=== PATIENT | female | born 2000 | race Hispanic/Latino ===

== ENCOUNTER 2020-12-24 21:41 | Emergency (ER) | payer OTHER ==
--- OUTSIDE RECORDS SUMMARY | 2020-12-24 21:46 | XMS REPORT | Continuity of Care Document ---
:2000 Author Organization [facility] t Address [address] [place] [address] [address] [place] [address] Care Team Providers Name Role Phone Tony ORTIZ R Primary Care Physician Herb Terrazas Attending Clinician Doctor Unassigned, Name Attending Clinician Unavailable Payers Payer Name Policy Type Policy Number Effective Expiration Source Date Date [facility]ICA[facility] [place] [facility] PENDINGPENDING19 [facility] [id number] [place] [id number] [id number] 2013 [facility] 00:00:00 [facility] CHOICECOMMUNITY [place] HEALTH CHOICE [id number]/07/30 13-Present[address], [place] [address]OUZY Advance Directives Directive Decision Effective Termination Comments Source Date Date Healthcare Agents on N/A [facility] FileNameRelationshipHealthcare [facility] Agent Medical RelationshipCommunicationOlok Branch ZamudioMotherHealth Care [phone] (Mobile) Dank BarriosteresooFChildren's Healthcare of [facility] [phone] (Home) Problems Condition Condition Condition Status Onset Resolution Last Treating Co mments Source Name Details Category Date Date Treatment Clinician Date Passive Passive Disease Resolve 2015-072020-11-13 2020-11-13 Univers smoke smoke d 1-17 00:00:00 18:54:48 ity of exposure exposure 00:00: [place] 00 Medical Branch Folliculit Folliculit Disease Resolve 2015-072020-11-13 2020-11-13 Univers is is d 07-27 00:00:00 18:54:48 ity of 00:00: [place] 00 Medical Branch Dermatitis Dermatitis Disease Resolve 2015-072020-11-13 2020-11-13 Univers d 07-27 00:00:00 18:54:48 ity of 00:00: [place] 00 Medical Branch Overweight Overweight Disease Resolve 2014-072020-11-13 2020-11-13 Univers , , d 0- 00:00:00 18:54:48 [place] BMI 00 Medical 85.0-94.9 85.0-94.9 Bran ch percentile percentile for age for age Rash Rash Disease Resolve 2015-072016-05-27 2016-05-27 Univers d 07-27 00:00:00 15:53:45 ity of 00:00: [place] 00 Medical Branch Poor Poor Disease Resolve 2016-05-27 2016-05-27 Univers nutrition nutrition d 03-20 00:00:00 14:18:21 ity of 00:00: [place] 00 Medical Branch Iron Iron Disease Resolve 2015-05-07 2015-05-07 Univers deficiency deficiency d 03-20 00:00:00 21:23:28 [place]y of anemia due [place] to dietary to dietary 00 Me dical causes causes Branch Obesity Obesity Disease Resolve 2012-072015-05-07 2015-05-07 Univers d 0-18 00:00:00 21:23:24 ity of 00:00: [place] 00 [facility] Branch Allergies, Adverse Reactions, Alerts This patient has no known allergies or adverse reactions. Social History Social Habit Start Date Stop Date Quantity Comments Source ASSERTION 2020-10-17 University of 00:00:00 [facility] Exposure to Not sure University of SARS-CoV-2 [facility] (event) Branch Tobacco use and 2020-11-13 2020-11-13 Never used Universit y of exposure 00:00:00 00:00:00 [facility] Alcohol intake 2020-11-13 2020-11-13 Current University of 00:00:00 00:00:00 non-drinker of [facility] alcohol Branch (finding) Tobacco Comment 2020-11-13 2020-11-13 last vaped last Univ ersity of 00:00:00 00:00:00 week [facility] Sex Assigned At 2000 2000 Universit y of 00:00:00 00:00:00 [facility] Smoking Status Start Date Stop Date Source Former smoker 2020-11-13 00:00:00 2020-11-13 00:00:00 Universi ty of [facility] Never smoker [facility] acute hospital Medications Ordered Filled Start Stop Current Ordering Indication Dosage Frequency Signature Comments Components Source Medication Medication Date Date Medication? Clinician (SIG) Name Name hydrocortis 2015-07 Yes Folliculiti Apply to Univers one 1 % 1-17 s area(s) ity of cream 00:00: daily. [place] 00 [facility] clindamycin 2015-07 Yes Folliculiti Apply to Univers (CLINDAGEL) 1-17 s area(s) 2 ity of 1 % gel 00:00: (two) [place] 00 times Medical daily. Branch hydrocortis 2015-07- No Folliculiti Apply to Univers one 1 % 1-17 05-06 s area(s) ity of cream 00:00: 00:00 daily. [place] 00 :00 [facility] clindamycin 2015-07- No Folliculiti Apply to Univers (CLINDAGEL) 1-17 05-06 s area(s) 2 it y of 1 % gel 00:00: 00:00 (two) [place] 00 :00 times Medical daily. Branch Immunizations Ordered Immunization Filled Immunization Date Status Commen ts Source Name Name Influenza Virus 2016-05-27 Completed Universit y of Vaccine Quad IM 3+ 00:00:00 [facility] Influenza Virus 2016-05-27 Completed Universit y of Vaccine Quad IM 3+ 00:00:00 [facility] Influenza Virus 2016-05-27 Completed Universit y of Vaccine Quad IM 3+ 00:00:00 [facility] Influenza Virus 2015-05-07 Completed Universit y of Vaccine [place] Nasal 00:00:00 [facility] Influenza Virus 2015-05-07 Completed Universit y of Vaccine [place] Nasal 00:00:00 [facility] Influenza Virus 2015-05-07 Completed Universit y of Vaccine [place] Nasal 00:00:00 [facility] Influenza Virus 2014-05-01 Completed Universit y of Vaccine [place] Nasal 00:00:00 [facility] Influenza Virus 2014-05-01 Completed Universit y of Vaccine [place] Nasal 00:00:00 [facility] Influenza Virus 2014-05-01 Completed Universit y of Vaccine [place] Nasal 00:00:00 [facility] Influenza Virus 2013-04-26 Completed Universit y of Vaccine Nasal 00:00:[address] [facility] [place] [place] Influenza Virus 2013-04-26 Completed Universit y of Vaccine Nasal 00:00:[address] [facility] [place] Influenza Virus 2013-04-26 Completed Universit y of Vaccine Nasal 00:00:[address] [facility] [place] Meningococcal 2012-02-14 Completed University of Vaccine 00:00:00 [facility] TDAP 2012-02-14 Completed University of 00:00:00 [facility] Meningococcal 2012-02-14 Completed University of Vaccine 00:00:00 [facility] TDAP 2012-02-14 Completed University of 00:00:00 [facility] Meningococcal 2012-02-14 Completed University of Vaccine 00:00:00 [facility] TDAP 2012-02-14 Completed University of 00:00:00 [facility] TDAP 2011-07-11 Completed University of 00:00:00 [facility] TDAP 2011-07-11 Completed University of 00:00:00 [facility] Influenza Virus 2011-05-11 Completed Universit y of Vaccine Nasal 00:00:[address] [facility] [place] [place] Influenza Virus 2011-05-11 Completed Universit y of Vaccine - Whole 00:00:00 [facility] HPV 2011-05-11 Completed University of 00:00:00 [facility] Influenza Virus 2011-05-11 Completed Universit y of Vaccine - Whole 00:00:00 [facility] Influenza Virus 2011-05-11 Completed Universit y of Vaccine Nasal 00:00:[address] [facility] [place] [place] HPV 2011-05-11 Completed University of 00:00:00 [facility] Influenza Virus 2011-05-11 Completed Universit y of Vaccine Nasal 00:00:[address] [facility] [place] [place] Influenza Virus 2011-05-11 Completed Universit y of Vaccine - Whole 00:00:00 [facility] HPV 2011-05-11 Completed University of 00:00:00 [facility] HPV 2011-01-12 Completed University of 00:00:00 [facility] HPV 2011-01-12 Completed University of 00:00:00 [facility] HPV 2011-01-12 Completed University of 00:00:00 [facility] HPV 2010-11-10 Completed University of 00:00:00 [facility] HPV 2010-11-10 Completed University of 00:00:00 [facility] HPV 2010-11-10 Completed University of 00:00:00 [facility] Influenza Virus 2009-07-02 Completed Universit y of Vaccine 00:00:00 [facility] Influenza Virus 2009-07-02 Completed Universit y of Vaccine 00:00:00 [facility] Influenza Virus 2009-07-02 Completed Universit y of Vaccine 00:00:00 [facility] Varicella 2006-12-20 Completed University of (varivax)(chicken 00:00:00 [facility] edical pox) Branch Varicella 2006-12-20 Completed University of (varivax)(chicken 00:00:00 [place] M edical pox) Branch Varicella 2006-12-20 Completed University of (varivax)(chicken 00:00:00 [facility] edical pox) Branch HEPATITIS A 2005-09-06 Completed University of 00:00:00 [facility] HEPATITIS A 2005-09-06 Completed University of 00:00:00 [facility] HEPATITIS A 2005-09-06 Completed University of 00:00:00 [facility] HEPATITIS A 2005-03-03 Completed University of 00:00:00 [facility] HEPATITIS A 2005-03-03 Completed University of 00:00:00 [facility] HEPATITIS A 2005-03-03 Completed University of 00:00:00 [facility] MMR 2005-01-21 Completed University of 00:00:00 [facility] Pneumococcal 7 2005-01-21 Completed University of Conjugate, PCV7 00:00:00 [place] ical (Prevnar7) [place] Polio (IPV/OPV) 2005-01-21 Completed Universit y of 00:00:00 [facility] PPD (TB) 2005-01-21 Completed University of 00:00:00 [facility] DTAP 2005-01-21 Completed University of 00:00:00 [facility] MMR 2005-01-21 Completed University of 00:00:00 [facility] Pneumococcal 7 2005-01-21 Completed University of Conjugate, PCV7 00:00:00 [place] ical (Prevnar7) [place] Polio (IPV/OPV) 2005-01-21 Completed Universit y of 00:00:00 [facility] PPD (TB) 2005-01-21 Completed University of 00:00:00 [facility] DTAP 2005-01-21 Completed University of 00:00:00 [facility] MMR 2005-01-21 Completed University of 00:00:00 [facility] Pneumococcal 7 2005-01-21 Completed University of Conjugate, PCV7 00:00:00 [place] [facility] ical (Prevnar7) Branch Polio (IPV/OPV) 2005-01-21 Completed Universit y of 00:00:00 [facility] PPD (TB) 2005-01-21 Completed University of 00:00:00 [facility] DTAP 2005-01-21 Completed University of 00:00:00 [facility] Pneumococcal 7 2002-07-09 Completed University of Conjugate, PCV7 00:00:00 [place] [facility] ical (Prevnar7) Branch Pneumococcal 7 2002-07-09 Completed University of Conjugate, PCV7 00:00:00 [facility] ical (Prevnar7) Branch Pneumococcal 7 2002-07-09 Completed University of Conjugate, PCV7 00:00:00 [facility] ical (Prevnar7) Branch Varicella 2002-03-20 Completed University of (varivax)(chicken 00:00:00 [facility] edical pox) Branch DTAP 2002-03-20 Completed University of 00:00:00 [facility] Varicella 2002-03-20 Completed University of (varivax)(chicken 00:00:00 [place] M edical pox) Branch DTAP 2002-03-20 Completed University of 00:00:00 [facility] Varicella 2002-03-20 Completed University of (varivax)(chicken 00:00:00 [facility] edical pox) Branch DTAP 2002-03-20 Completed University of 00:00:00 [facility] MMR 2001-12-19 Completed University of 00:00:00 [facility] Polio (IPV/OPV) 2001-12-19 Completed Universit y of 00:00:00 [facility] PPD (TB) 2001-12-19 Completed University of 00:00:00 [facility] HIB 4 Dose Schedule 2001-12-19 Completed Unive rsity of 00:00:00 [facility] MMR 2001-12-19 Completed University of 00:00:00 [facility] Polio (IPV/OPV) 2001-12-19 Completed Universit y of 00:00:00 [facility] PPD (TB) 2001-12-19 Completed University of 00:00:00 [facility] HIB 4 Dose Schedule 2001-12-19 Completed Unive rsity of 00:00:00 [facility] MMR 2001-12-19 Completed University of 00:00:00 [facility] Polio (IPV/OPV) 2001-12-19 Completed Universit y of 00:00:00 [facility] PPD (TB) 2001-12-19 Completed University of 00:00:00 [facility] HIB 4 Dose Schedule 2001-12-19 Completed Unive rsity of 00:00:00 [facility] Hep B, Adol or Pedi 2001-10-03 Completed Unive rsity of Dosage 00:00:00 [facility] Hep B, Adol or Pedi 2001-10-03 Completed Unive rsity of Dosage 00:00:00 [facility] Hep B, Adol or Pedi 2001-10-03 Completed Unive rsity of Dosage 00:00:00 [facility] Pneumococcal 7 2001-08-02 Completed University of Conjugate, PCV7 00:00:00 [place] [facility] ical (Prevnar7) Branch DTAP 2001-08-02 Completed University of 00:00:00 [facility] HIB 4 Dose Schedule 2001-08-02 Completed Unive rsity of 00:00:00 [facility] Pneumococcal 7 2001-08-02 Completed University of Conjugate, PCV7 00:00:00 [place] [facility] ical (Prevnar7) Branch DTAP 2001-08-02 Completed University of 00:00:00 [facility] HIB 4 Dose Schedule 2001-08-02 Completed Unive rsity of 00:00:00 [facility] Pneumococcal 7 2001-08-02 Completed University of Conjugate, PCV7 00:00:00 [place] [facility] ical (Prevnar7) Branch DTAP 2001-08-02 Completed University of 00:00:00 [facility] HIB 4 Dose Schedule 2001-08-02 Completed Unive rsity of 00:00:00 [facility] Polio (IPV/OPV) 2001-05-10 Completed Universit y of 00:00:00 [facility] DTAP 2001-05-10 Completed University of 00:00:00 [facility] HIB 4 Dose Schedule 2001-05-10 Completed Unive rsity of 00:00:00 [facility] Hep B, Adol or Pedi 2001-05-10 Completed Unive rsity of Dosage 00:00:00 [facility] Polio (IPV/OPV) 2001-05-10 Completed Universit y of 00:00:00 [facility] DTAP 2001-05-10 Completed University of 00:00:00 [facility] HIB 4 Dose Schedule 2001-05-10 Completed Unive rsity of 00:00:00 [facility] Hep B, Adol or Pedi 2001-05-10 Completed Unive rsity of Dosage 00:00:00 [facility] Polio (IPV/OPV) 2001-05-10 Completed Universit y of 00:00:00 [facility] DTAP 2001-05-10 Completed University of 00:00:00 [facility] HIB 4 Dose Schedule 2001-05-10 Completed Unive rsity of 00:00:00 [facility] Hep B, Adol or Pedi 2001-05-10 Completed Unive rsity of Dosage 00:00:00 [facility] Pneumococcal 7 2001-02-14 Completed University of Conjugate, PCV7 00:00:00 [place] [facility] ical (Prevnar7) Branch Polio (IPV/OPV) 2001-02-14 Completed Universit y of 00:00:00 [facility] DTAP 2001-02-14 Completed University of 00:00:00 [facility] HIB 4 Dose Schedule 2001-02-14 Completed Unive rsity of 00:00:00 [facility] Pneumococcal 7 2001-02-14 Completed University of Conjugate, PCV7 00:00:00 [place] [facility] ical (Prevnar7) Branch Polio (IPV/OPV) 2001-02-14 Completed Universit y of 00:00:00 [facility] DTAP 2001-02-14 Completed University of 00:00:00 [facility] HIB 4 Dose Schedule 2001-02-14 Completed Unive rsity of 00:00:00 [facility] Pneumococcal 7 2001-02-14 Completed University of Conjugate, PCV7 00:00:00 [place] [facility] ical (Prevnar7) Branch Polio (IPV/OPV) 2001-02-14 Completed Universit y of 00:00:00 [facility] DTAP 2001-02-14 Completed University of 00:00:00 [facility] HIB 4 Dose Schedule 2001-02-14 Completed Unive rsity of 00:00:00 [facility] Hep B, Adol or Pedi 2000 Completed Unive rsity of Dosage 00:00:00 [facility] Hep B, Adol or Pedi 2000 Completed Unive rsity of Dosage 00:00:00 [facility] Hep B, Adol or Pedi 2000 Completed Unive rsity of Dosage 00:00:00 [facility] Vital Signs Vital Name Observation Time Observation Value Comments Source Systolic blood 2020-11-13 19:18:00 116 mm[Hg] Univer sity of pressure [facility] Diastolic blood 2020-11-13 19:18:00 71 mm[Hg] Unive rsity of [facility] Heart rate 2020-11-13 19:18:00 97 /min [facility] Body temperature 2020-11-13 19:18:00 37.22 [facility] Respiratory rate 2020-11-13 19:18:00 16 /min [facility] Body height 2020-11-13 19:18:00 157.5 cm [facility] Body weight 2020-11-13 19:18:00 69.174 kg [facility] BMI 2020-11-13 19:18:00 27.89 kg/m2 [facility] Procedures Procedure Date / Time Performed Performing Clinician Sour e POCT URINALYSIS W/O 2020-11-13 19:09:[address] [facility] SPECIFIC GRAVITY [facility] POCT TEST 2020-11-13 19:08:00 Milagro Varela [facility] CONSENT/REFUSAL FOR 2020-11-13 18:36:33 Doctor Unassigned, No Un [facility] DIAGNOSIS AND Name [facility] TREATMENT Plan of Care Planned Activity Planned Date Details Comments Source Future Scheduled 2022-02-13 DTaP,Tdap,and Td Univers ity of Test 00:00:00 Vaccines (5 - Td) [facility] [place] [facility] [code = Branch DTaP,Tdap,and Td Vaccines (5 - Td)] Future Scheduled 2022-02-13 DTaP,Tdap,and Td Univers ity of Test 00:00:00 Vaccines (5 - Td) [facility] carl [code = Branch DTaP,Tdap,and Td Vaccines (5 - Td)] Future Scheduled 2022-02-13 DTaP,Tdap,and Td Univers ity of Test 00:00:00 Vaccines (7 - Td) [facility] [place] [facility] [code = Branch DTaP,Tdap,and Td Vaccines (7 - Td)] Future Scheduled 2021-11-13 Screening for University of Test 00:00:00 Chlamydia [place] [facility] trachomatis Branch (procedure) [code = 422745859] Future Scheduled 2021-11-13 Depression screening Uni versity of Test 00:00:00 (procedure) [code = [facility] dical 365345103] Branch Future Scheduled 2021-11-13 MENINGOCOCCAL B Postponed from Univer sity of Test 00:00:00 VACCINES (1 of 2 - 2010 [place] [facility] ical Risk Bexsero 2-dose ( or Branch series) [code = ) MENINGOCOCCAL B VACCINES (1 of 2 - Risk Bexsero 2-dose series)] Future Scheduled 2021-11-13 Screening for University of Test 00:00:00 Chlamydia [place] [facility] trachomatis Branch (procedure) [code = 117119464] Future Scheduled 2021-11-13 Depression screening Uni versity of Test 00:00:00 (procedure) [code = [facility] dical [id number]] Branch Future Scheduled 2021-11-13 MENINGOCOCCAL B Postponed from Univer sity of Test 00:00:00 VACCINES (1 of 2 - 2010 [place] [facility] ical Risk Bexsero 2-dose ( or Branch series) [code = ) MENINGOCOCCAL B VACCINES (1 of 2 - Risk Bexsero 2-dose series)] Future Scheduled 2021-03-11 INFLUENZA VACCINE Univer sity of Test 00:00:00 (Season Ended) [code [place] [facility] edical = INFLUENZA VACCINE Branch (Season Ended)] Future Scheduled 2021-03-11 INFLUENZA VACCINE Univer sity of Test 00:00:00 (Season Ended) [code [place] [facility] ed[facility] = INFLUENZA VACCINE Branch (Season Ended)] Future Scheduled 2021-03-11 INFLUENZA VACCINE Univer sity of Test 00:00:00 (Season Ended) [code [place] [facility] ed[facility] = INFLUENZA VACCINE Branch (Season Ended)] Diagnostic Test 2020-11-13 GLUCOSE 1 HOUR POST Expected: Unive rsity of Pending 00:00:00 PRANDIAL [code = 11/13/2020, [place] [facility] [place] 59883-0] Expires: Branch 11/13/2021 Future Scheduled 2018 Hepatitis C University of Test 00:00:00 screening [place] [facility] (procedure) [code = Branch 270514121] Future Scheduled 2018 Hepatitis C University of Test 00:00:00 screening [place] [facility] (procedure) [code = Branch 350677480] Future Scheduled 2018 Hepatitis C University of Test 00:00:00 screening [place] [facility] (procedure) [code = Branch 794393376] Future Scheduled 2017-05-27 Well child visit Univers ity of Test 00:00:00 (procedure) [code = [facility] dical 389747492] Branch Future Scheduled 2016 SARS-CoV-2 University of Test 00:00:00 (COVID-19) Vaccine [place] [facility] ical (1) [code = Branch SARS-CoV-2 (COVID-19) Vaccine (1)] Future Scheduled 2016 SARS-CoV-2 University of Test 00:00:00 (COVID-19) Vaccine [place] [facility] (1) [code = Branch SARS-CoV-2 (COVID-19) Vaccine (1)] Future Scheduled 2016 Screening for University of Test 00:00:00 Chlamydia [place] [facility] trachomatis Branch (procedure) [code = 974413151] Future Scheduled 2016 SARS-CoV-2 University of Test 00:00:00 (COVID-19) Vaccine [place] [facility] (1) [code = Branch SARS-CoV-2 (COVID-19) Vaccine (1)] Future Scheduled 2012 Depression screening Uni versity of Test 00:00:00 (procedure) [code = [place] [facility] dical 044561876] Branch Future Scheduled 2010 MENINGOCOCCAL B Universi ty of Test 00:00:00 VACCINES (1 of 2 - [place] [facility] ical Risk Bexsero 2-dose Branch series) [code = MENINGOCOCCAL B VACCINES (1 of 2 - Risk Bexsero 2-dose series)] Future Scheduled WORKUP, Ordered: Univers ity of Test BLOOD BANK [code = 11/13/2020 [place] [facility] ical 3113] Branch Future Scheduled CBC WITH DIFF [code Univ ersity of Test = 82821-3] [facility] Future Scheduled GC & CHLAMYDIA Universit y of Test AMPLIFIED ASSAY [place] [facility] [code = 80280-4] Branch Future Scheduled HEPATITIS B SURFACE Univ ersity of Test ANTIGEN [code = [place] [facility] 61497-8] Branch Future Scheduled HIV 1/2 AG-AB WITH Unive rsity of Test REFLEX [code = [facility] 90742-2] Branch Future Scheduled RUBELLA SCREEN Universit y of Test (MARTIN) IGG [code = [place] Sd dical 02412-2] Branch Future Scheduled GALV ONLY - SYPHILIS Uni versity of Test IGG/IGM [code = [place] [facility] 77791-0] Branch Future Scheduled URINE CULTURE [code Univ ersity of Test = 630-4] [facility] Future Scheduled THYROID STIMULATING Univ ersity of Test HORMONE [code = [place] [facility] 72494-5] Branch Future Scheduled GLUCOSE 1 HOUR POST Univ ersity of Test PRANDIAL [code = [place] [facility] 27844-8] Branch Future Scheduled POCT URINALYSIS W/O 20 Occurrences Un iversity of Test SPECIFIC GRAVITY starting [place] [facility] [code = 76988] 11/13/2020 until Branch 11/13/2021 Encounters Start End Encounter Admission Attending Care Care Encounter Source Date/Time Date/Time Type Type Clinicians Facility Department ID 2020-12-24 2020-12-24 Telephone REINALDO Varela [id number] 00:00:00 00:00:00 Milagro Estevez [employer] [id number] [facility] [id number] MATERNAL [id number] & CHILD [address] [place] [address] Results Test Description Test Time Test Comments Results Result Comments Source POCT URINALYSIS W/O SPECIFIC GRAVITY 2020-11-13 19:09:00 Test Item Value Reference Range Interpretation Comme nts POCT PH U (test code = 3254) 7 mg/dl 5-8 POCT U LEUK EST (test code = 3263) Neg Negative - Negative POCT U NIT (test code = 3262) Neg Negative - Negative POCT U PROT (test code = 3259) Trace Negative - Negative POCT U GLU (test code = 3256) Neg Negative - Negative POCT U KETONE (test code = 3258) None Negative - Negative POCT U BLD (test code = 3257) Trace Negative - Negative [id number] 19:08:00 Test Item Value Reference Range Interpretation Comments POCT PREG (test code = 1605) Positive On board controls acceptable with C Yes Line (test code = 3574) POCT PREG LOT # (test code = 3575) POCT PREG TEST DATE (test code = 3576) [facility]
[2020-12-24 23:00] LABS: Urine Blood Negative (Negative); Urine Glucose Negative (Negative); Urine Protein Negative (Negative); Urine Specific Gravity 1.015 (1.005-1.030); Urine pH 7.5 (5.0-7.0)
[2020-12-24] MEDS ORDERED: ONDANSETRON 4 MG/2 ML VIAL ONE (23:02)
[2020-12-24] MEDS ORDERED: NA CHLORIDE 0.9% 1,000 ML ONE (23:02)
[2020-12-24 23:06] LABS: Urine Specific Gravity/Preg 1.015 (1.005-1.030)
[2020-12-24 23:13] LABS: Absolute Lymphocytes (CBC) 1.6 K/uL (0.7-4.9); Basophils % 0.5 % (0-1.3); Hematocrit 31.3 % (36.0-45.0); Lymphocytes % 23.7 % (15.3-44.8); MPV 7.9 fL (7.6-11.3); RBC Red Blood Cell Count 3.92 M/uL (3.86-4.86)
[2020-12-25 00:08] LABS: Urine Bacteria <20 /HPF (<20); Urine RBC <5 /HPF (NONE SEEN)
[2020-12-25 00:44] LABS: BUN Blood Urea Nitrogen 6 mg/dL (7-18); Bicarbonate 22 mmol/L (21-32); Glucose Level 82 mg/dL (74-106); HCG, Quantitative 48486 mIU/mL (1-3); Potassium 3.8 mmol/L (3.5-5.1); Sodium Level 139 mmol/L (136-145)
--- NOTE | 2020-12-25 00:56 | EDPHYS ---
Physician Documentation [facility] Name: Anil Barney Age: 20 yrs Sex: Female : 2000 Arrival Date: 12/24/2020 Time: 21:45 Bed 26 Private MD: ED Physician Giovanni Castillo HPI: 12/24 22:40 This 20 yrs old Female presents to ER via Ambulatory with complaints of cp Nausea/Vomiting, +12 Weeks Preg. 22:40 The patient presents to the emergency department with nausea, that is moderate, cp vomiting, that is intermittent. Onset: The symptoms/episode began/occurred 5 day(s) ago. Possible causes: . Associated signs and symptoms: Pertinent negatives: abdominal pain, constipation, diarrhea, fever, GI bleeding, vaginal bleeding. Severity of symptoms: in the emergency department the symptoms are unchanged despite home interventions. 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 Flu vaccine is not up to date. - Social history:: Smoking status: Patient denies any tobacco usage or history of. ROS: 22:45 Constitutional: Positive for poor PO intake, Negative for body aches, chills, fever. cp 22:45 Eyes: Negative for injury, pain, redness, and discharge. cp 22:45 Cardiovascular: Negative for chest pain, palpitations. 22:45 Respiratory: Negative for cough, shortness of breath, wheezing. 22:45 Abdomen/GI: Positive for nausea and vomiting, Negative for abdominal pain, constipation, hematemesis. 22:45 Neuro: Negative for altered mental status, weakness. 22:45 All other systems are negative. Exam: 22:50 Constitutional: The patient appears in no acute distress, alert, awake, comfortable, cp non-toxic, well developed, well nourished. 22:50 Head/Face: Normocephalic, atraumatic. cp 22:50 Eyes: Periorbital structures: appear normal, Conjunctiva: normal, no exudate, no injection, Sclera: no appreciated abnormality, Lids and lashes: appear normal, bilaterally. 22:50 ENT: External ear(s): are unremarkable, Nose: is normal, Mouth: Lips: moist, Oral mucosa: moist, Posterior pharynx: Airway: no evidence of obstruction, patent. 22:50 Chest/axilla: Inspection: normal, Palpation: is normal, no crepitus, no tenderness. 22:50 Cardiovascular: Rate: normal, Rhythm: regular. 22:50 Respiratory: the patient does not display signs of respiratory distress, Respirations: normal, no use of accessory muscles, no retractions, labored breathing, is not present, Breath sounds: are clear throughout, no decreased breath sounds. 22:50 Abdomen/GI: Inspection: abdomen appears normal, Bowel sounds: active, all quadrants, Palpation: abdomen is soft and non-tender, in all quadrants. 22:50 Back: CVA tenderness, is absent. 22:50 Skin: no rash present. cp 22:50 Neuro: Orientation: to person, place \T\ time. Mentation: is normal. cp Vital Signs: 21:53 BP 118 / 66; Pulse 92; Resp 16 S; Temp 98.8; Pulse Ox 100% on R/A; Weight 68.95 kg (R); ca1 Height 5 ft. 2 in. (157.48 cm) (R); Pain 0/10; 22:45 BP 94 / 64; Pulse 75; Resp 18; Pulse Ox 100% on R/A; kg 23:00 BP 97 / 58; Pulse 70; Resp 18; Pulse Ox 100% ; kg 23:30 BP 101 / 56; Pulse 72; Resp 20; Pulse Ox 100% on R/A; kg 17 00:00 BP 101 / 58; Pulse 75; Resp 20; Pulse Ox 98% on R/A; kg 01:00 BP 103 / 61; Pulse 79; Resp 16; Pulse Ox 99% on R/A; em 12/24 21:53 Body Mass Index 27.80 (68.95 kg, 157.48 cm) ca1 MDM: 12/24 22:05 Patient medically screened. cp 22:45 Differential diagnosis: gastritis, cholecystitis, dehydration, electrolyte abnormality. cp 12/25 00:55 Data reviewed: vital signs, nurses notes, lab test result(s), and as a result, I will cp discharge patient. 00:55 Counseling: I had a detailed discussion with the patient and/or guardian regarding: the cp historical points, exam findings, and any diagnostic results supporting the discharge/admit diagnosis, lab results, the need for outpatient follow up, an OB/Gyne specialist, to return to the emergency department if symptoms worsen or persist or if there are any questions or concerns that arise at home. Response to treatment: the patient's symptoms have markedly improved after treatment, VSS. Nausea markedly improved, vomiting resolved, and as a result, I will discharge patient. 12/24 22:30 Order name: Quantitative Hcg; Complete Time: 00:53 12/25 00:53 Interpretation: HCGQ 78421; Reviewed. 12/24 22:30 Order name: Abo/rh Typing; Complete Time: 00:41 cp 12/25 00:54 Interpretation: Reviewed. 12/24 22:30 Order name: Basic Metabolic Panel; Complete Time: 00:53 cp 12/25 00:53 Interpretation: Normal except: CL 111; BUN 6; CRE 0.38; CA 7.7. 12/24 22:30 Order name: CBC with Diff; Complete Time: 23:46 cp 12/24 23:46 Interpretation: Normal except: HGB 10.7; HCT 31.3; MCV 79.9. 12/24 22:36 Order name: Urine Microscopic Only; Complete Time: 00:41 cp 12/24 23:00 Order name: Urine Dipstick-Ancillary; Complete Time: 23:46 EDMS 12/25 00:41 Interpretation: Normal except: UPH 7.5. 12/24 22:30 Order name: Urine Test (obtain specimen); Complete Time: 23:02 cp 12/24 22:30 Order name: IV Saline Lock; Complete Time: 23:05 cp 12/24 22:30 Order name: Labs collected and sent; Complete Time: 23:05 cp 12/24 23:01 Order name: Urine --Ancillary (enter results); Complete Time: 23:46 eb 12/24 22:30 Order name: NPO; Complete Time: 22:38 cp 12/24 22:30 Order name: Urine Dipstick-Ancillary (obtain specimen); Complete Time: 23:02 cp 12/24 22:30 Order name: FHT's; Complete Time: 23:52 cp 12/24 23:12 Order name: Labs - recollect needed: recollect green top clotted; Complete Time: 23:39 eb 12/24 23:47 Order name: Labs - recollect needed: recollect the recollect also draw the abo no eb charge; Complete Time: 00:04 12/25 00:41 Order name: PO challenge; Complete Time: 00:57 cp Administered Medications: 12/24 22:45 Drug: NS 0.9% 1000 ml Route: IV; Rate: 1 bolus; Site: right antecubital; kg 12/25 00:55 Follow up: IV Status: Completed infusion; IV Intake: 1000ml em 12/24 23:01 Drug: Zofran (Ondansetron) 4 mg Route: IVP; Site: right antecubital; kg 12/25 00:55 Follow up: Response: No adverse reaction; Marked relief of symptoms; Nausea is decreasedem 00:57 Drug: Tylenol 1000 mg Route: PO; em 01:42 Follow up: Response: No adverse reaction; Marked relief of symptoms; Pain is decreased em 00:57 Drug: NS 0.9% 1000 ml Route: IV; Rate: 1 bolus; Site: right antecubital; em 01:42 Follow up: IV Status: Completed infusion; IV Intake: 1000ml em Disposition: 05:04 Co-signature as Attending Physician, Giovanni Castillo MD. rn Disposition: 12/25/20 00:55 Discharged to Home. Impression: related conditions, unspecified, first trimester, Nausea and vomiting. - Condition is Stable. - Discharge Instructions: Nausea and Vomiting, Adult, First Trimester of . - Prescriptions for Phenergan 25 mg Rectal Suppository - insert 1 suppository by RECTAL route every 6 hours As needed; 12 suppository. promethazine 25 mg Oral Tablet - take 1 tablet by ORAL route every 6 hours As needed; 20 tablet. - Work release form, Medication Reconciliation Form, Thank You Letter, Antibiotic Education, Prescription Opioid Use form. - Follow up: Private Physician; When: 1 - 2 days; Reason: Recheck today's complaints. - Problem is new. - Symptoms have improved. Signatures: Dispatcher [employer] Tripp Acevedo RN RN em Giovanni Castillo MD MD rn Page, Corey, PA PA cp Botello, Elizabeth eb Acob, Cheryl, RN RN [facility] Diana Duncan, JOSEPHINE RN kg Corrections: (The following items were deleted from the chart) 00:53 00:53 Normal except: CL 111; BUN 6; CRE 0.38. cp cp 01:44 00:55 12/25/2020 00:55 Discharged to Home. Impression: related conditions, em unspecified, first trimester; Nausea and vomiting. Condition is Stable. Forms are Medication Reconciliation Form, Thank You Letter, Antibiotic Education, Prescription Opioid Use. Follow up: Private Physician; When: 1 - 2 days; Reason: Recheck today's complaints. Problem is new. Symptoms have improved. cp
--- NOTE | 2020-12-25 00:56 | ER ---
Nurse's Notes [facility] Name: Anil Barney Age: 20 yrs Sex: Female : 2000 Arrival Date: 12/24/2020 Time: 21:45 Bed 26 Private MD: Diagnosis: related conditions, unspecified, first trimester;Nausea and vomiting Presentation: 12/24 21:51 Chief complaint: Patient states: 12 wks , N/V x 5 days. Can't keep anything ca1 down. Prescribed promethazine, no relief. Coronavirus screen: Client denies travel out of the [place] in the last 14 days. nausea, vomiting. Client presents with at least one sign or symptom that may indicate coronavirus-19. Standard/surgical mask placed on the client. Provider contacted for isolation considerations. Ebola Screen: Patient negative for fever greater than or equal to 101.5 degrees Fahrenheit, and additional compatible Ebola Virus Disease symptoms Patient denies exposure to infectious person. Patient denies travel to an Ebola-affected area in the 21 days before illness onset. No symptoms or risks identified at this time. Risk Assessment: Do you want to hurt yourself or someone else? Patient reports no desire to harm self or others. 21:51 Method Of Arrival: Ambulatory ca1 21:51 Acuity: HEMALATHA 3 ca1 21:53 Initial Sepsis Screen: Does the patient meet any 2 criteria? No. Patient's initial ca1 sepsis screen is negative. Does the patient have a suspected source of infection? No. Patient's initial sepsis screen is negative. Onset of symptoms was December 24, 2020. 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 Flu vaccine is not up to date. - Social history:: Smoking status: Patient denies any tobacco usage or history of. Screenin:07 Abuse screen: Denies threats or abuse. Denies injuries from another. Nutritional kg screening: No deficits noted. Tuberculosis screening: No symptoms or risk factors identified. Fall Risk None identified. No fall in past 12 months (0 pts). No secondary diagnosis (0 pts). IV access (20 points). Ambulatory Aid- None/Bed Rest/Nurse Assist (0 pts). Gait- Normal/Bed Rest/Wheelchair (0 pts) Mental Status- Oriented to own ability (0 pts). Total Carrasco Fall Scale indicates No Risk (0-24 pts). Assessment: 23:05 General: Appears in no apparent distress. Behavior is calm, cooperative, appropriate kg for age, quiet. Pain: Denies pain. Neuro: Level of Consciousness is awake, alert, obeys commands, Oriented to person, place, time, situation, Reports dizziness, Pt stated, "Sometimes I get dizzy when I get up and go walk and it comes and goes.". Cardiovascular: No deficits noted. Respiratory: No deficits noted. GI: Abdomen is round Reports constipation, nausea, vomiting. : No deficits noted. EENT: No deficits noted. Derm: No deficits noted. Musculoskeletal: No deficits noted. 23:56 Reassessment: Patient states feeling better. kg 12/25 01:15 Reassessment: tolerated PO well. em Vital Signs: 12/24 21:53 BP 118 / 66; Pulse 92; Resp 16 S; Temp 98.8; Pulse Ox 100% on R/A; Weight 68.95 kg (R); ca1 Height 5 ft. 2 in. (157.48 cm) (R); Pain 0/10; 22:45 BP 94 / 64; Pulse 75; Resp 18; Pulse Ox 100% on R/A; kg 23:00 BP 97 / 58; Pulse 70; Resp 18; Pulse Ox 100% ; kg 23:30 BP 101 / 56; Pulse 72; Resp 20; Pulse Ox 100% on R/A; kg 12/25 00:00 BP 101 / 58; Pulse 75; Resp 20; Pulse Ox 98% on R/A; kg 01:00 BP 103 / 61; Pulse 79; Resp 16; Pulse Ox 99% on R/A; em 12/24 21:53 Body Mass Index 27.80 (68.95 kg, 157.48 cm) ca1 Vitals: 12/24 23:52 Heart Tones 164 BPM. em ED Course: 21:45 Patient arrived in ED. bp1 21:53 Triage completed. ca1 21:53 Arm band placed on right wrist. ca1 21:57 Orville Bains PA is PHCP. cp 21:57 Giovanni Castillo MD is Attending Physician. cp 22:38 Diana Duncan, RN is Primary Nurse. kg 22:40 Inserted saline lock: 20 gauge in right antecubital area, using aseptic technique. kg 23:08 Patient has correct armband on for positive identification. Bed in low position. Call kg light in reach. Side rails up X 1. 12/25 00:05 Report given to Tripp BURTON. kg 01:40 No provider procedures requiring assistance completed. IV discontinued, intact, em bleeding controlled, No redness/swelling at site. Pressure dressing applied. Administered Medications: 12/24 22:45 Drug: NS 0.9% 1000 ml Route: IV; Rate: 1 bolus; Site: right antecubital; kg 12/25 00:55 Follow up: IV Status: Completed infusion; IV Intake: 1000ml em 12/24 23:01 Drug: Zofran (Ondansetron) 4 mg Route: IVP; Site: right antecubital; kg 12/25 00:55 Follow up: Response: No adverse reaction; Marked relief of symptoms; Nausea is decreasedem 00:57 Drug: Tylenol 1000 mg Route: PO; em 01:42 Follow up: Response: No adverse reaction; Marked relief of symptoms; Pain is decreased em 00:57 Drug: NS 0.9% 1000 ml Route: IV; Rate: 1 bolus; Site: right antecubital; em 01:42 Follow up: IV Status: Completed infusion; IV Intake: 1000ml em Intake: 00:55 IV: 1000ml; Total: 1000ml. em 01:42 IV: 1000ml; Total: 2000ml. em Outcome: 00:55 Discharge ordered by MD. cp 01:40 Discharged to home ambulatory, with family. em 01:40 Condition: stable 01:40 Discharge instructions given to patient, Instructed on discharge instructions, follow up and referral plans. medication usage, Demonstrated understanding of instructions, follow-up care, medications, Prescriptions given X 2. 01:44 Patient left the ED. em Signatures: Tripp Guerin, RN RN em Orville Bains PA PA cp Mahi Geronimo RN RN ca1 Litzy Mejia bp1 Diana Duncan RN RN kg
[2020-12-25] MEDS ORDERED: ACETAMINOPHEN 500 MG TAB ONE (01:09)
[2020-12-25] MEDS ORDERED: NA CHLORIDE 0.9% 1,000 ML ONE (01:10)
[2020-12-25 02:06] VITALS: TEMP 98.8
[2020-12-25 02:14] VITALS: BP 103/61; O2SAT 99
== END 2020-12-25 01:44 | disposition home or self-care (01) ==
LOC: ER 21:41
DX: O21.9 Vomiting of pregnancy, unspecified (principal); Z3A.12 12 weeks gestation of pregnancy
CPT/HCPCS: 85025; 80048; 36415; 86900; 81025; 86901; 84702; J7030 ×2; J2405; 81003; 81015; 96361; 96374; 99284

== ENCOUNTER 2021-01-16 15:29 | Emergency (ER) | payer OTHER ==
--- OUTSIDE RECORDS SUMMARY | 2021-01-16 15:32 | XMS REPORT | Continuity of Care Document ---
:2000 Author Organization [facility] t Address [address] [place] [address] Care Team Providers Name Role Phone Tony ORTIZ, R Primary Care Physician Tony ORTIZ, R Attending Clinician Avery ORTIZ, N Attending Clinician Lab Attending Clinician Unavailable Doctor Unassigned, Name Attending Clinician Unavailable Payers Payer Name Policy Type Policy Number Effective Expiration Source Date Date MEDICAID PENDING 2020 [facility] [place] [facility] PENDINGPENDING19 [facility] [id number] [place] [id number]. [facility]s [facility] [id number] 2013 [facility] 00:00:00 [place] [facility] CHOICECOX [facility] HEALTH CHOICE [id number] 13-[id number] [place] [id number] Advance Directives Directive Decision Effective Termination Comments Source Date Date Healthcare Agents on N/A [facility] FileNameRelationshipHealthcare [facility] Agent Medical RelationshipCommunicationSwitz City Branch ZamudioMotherHealth Care [phone] (Mobile) [facility] [phone] (Home) Problems Condition Condition Condition Status Onset Resolution Last Treating Co mments Source Name Details Category Date Date Treatment Clinician Date Folliculit Folliculit Disease Resolve 2015-072020-11-13 2020-11-13 Univers is is d -17 00:00:00 18:54:48 ity of 00:00: [place] 00 [facility] Dermatitis Dermatitis Disease Resolve 2015-072020-11-13 2020-11-13 Univers d 07-27 00:00:00 18:54:48 ity of 00:00: [place] [facility] Passive Passive Disease Resolve 2015-072020-11-13 2020-11-13 Univers smoke smoke d 07-27 00:00:00 18:54:48 ity of exposure exposure 00:00: [place] [facility] Overweight Overweight Disease Resolve 2014-072020-11-13 2020-11-13 Univers , , d 0- 00:00:00 18:54:48 [place] BMI 00 Medical 85.0-94.9 85.0-94.9 Bran ch percentile percentile for age for age Rash Rash Disease Resolve 2015-072016-05-27 2016-05-27 Univers d 07-27 00:00:00 15:53:45 ity of 00:00: [place] [facility] Poor Poor Disease Resolve 2016-05-27 2016-05-27 Univers nutrition nutrition d 03-20 00:00:00 14:18:21 ity of 00:00: [place] [facility] Iron Iron Disease Resolve 2015-05-07 2015-05-07 Univers deficiency deficiency d 03-20 00:00:00 21:23:28 [place]y of anemia due [place] to dietary to dietary 00 Me dical causes causes Branch Obesity Obesity Disease Resolve 2012-072015-05-07 2015-05-07 Univers d 0-18 00:00:00 21:23:24 ity of 00:00: [place] 00 Medical Branch Allergies, Adverse Reactions, Alerts This patient has no known allergies or adverse reactions. Social History Social Habit Start Date Stop Date Quantity Comments Source ASSERTION 2020-10-17 University of 00:00:00 [facility] Exposure to Not sure University of SARS-CoV-2 [facility] (event) Branch Tobacco use and 2020-11-13 2020-11-13 Never used Universit y of exposure 00:00:00 00:00:00 [facility] Alcohol intake 2020-11-13 2020-11-13 Current University of 00:00:00 00:00:00 non-drinker of [facility] alcohol Branch (finding) Tobacco Comment 2020-11-13 2020-11-13 last vaped last Univ ersity of 00:00:00 00:00:00 week [facility] Sex Assigned At 2000 2000 Universit y of 00:00:00 00:00:00 [facility] Smoking Status Start Date Stop Date Source Former smoker 2020-11-13 00:00:00 2020-11-13 00:00:00 Universi ty of [facility] Never smoker [facility] Branch Medications Ordered Filled Start Stop Current Ordering Indication Dosage Frequency Signature Comments Components Source Medication Medication Date Date Medication? Clinician (SIG) Name Name hydrocortis 2015-07 Yes Folliculiti Apply to Univers one 1 % 1-17 s area(s) ity of cream 00:00: daily. [address] clindamycin 2015-07 Yes Folliculiti Apply to Univers (CLINDAGEL) 1-17 s area(s) 2 ity of 1 % gel 00:00: (two) [place] 00 times Medical daily. Branch hydrocortis 2015-07- No Folliculiti Apply to Univers one 1 % 1-17 05-06 s area(s) ity of cream 00:00: 00:00 daily. [place] 00 :00 [facility] clindamycin 2015-07- No Folliculiti Apply to Univers (CLINDAGEL) 1-17 05-06 s area(s) 2 it y of 1 % gel 00:00: 00:00 (two) [place] 00 :00 times Medical daily. Branch Immunizations Ordered Immunization Filled Immunization Date Status Commen ts Source Name Name Influenza Virus 2016-05-27 Completed Universit y of Vaccine Quad IM 3+ 00:00:00 [facility] Influenza Virus 2016-05-27 Completed Universit y of Vaccine Quad IM 3+ 00:00:00 [facility] Influenza Virus 2016-05-27 Completed Universit y of Vaccine Quad IM 3+ 00:00:00 [facility] Influenza Virus 2015-05-07 Completed Universit y of Vaccine Quad Nasal 00:00:00 [facility] Influenza Virus 2015-05-07 Completed Universit y of Vaccine Quad Nasal 00:00:00 [facility] Influenza Virus 2015-05-07 Completed Universit y of Vaccine Quad Nasal 00:00:00 [facility] Influenza Virus 2014-05-01 Completed Universit y of Vaccine Quad Nasal 00:00:00 [facility] Influenza Virus 2014-05-01 Completed Universit y of Vaccine Quad Nasal 00:00:00 [facility] Influenza Virus 2014-05-01 Completed Universit y of Vaccine Quad Nasal 00:00:00 [facility] Influenza Virus 2013-04-26 Completed Universit y of Vaccine Nasal 00:00:00 [facility] Influenza Virus 2013-04-26 Completed Universit y of Vaccine Nasal 00:00:00 [facility] Influenza Virus 2013-04-26 Completed Universit y of Vaccine Nasal 00:00:00 [facility] Meningococcal 2012-02-14 Completed University of Vaccine 00:00:00 [facility] TDAP 2012-02-14 Completed University of 00:00:00 [facility] Meningococcal 2012-02-14 Completed University of Vaccine 00:00:00 [facility] TDAP 2012-02-14 Completed University of 00:00:00 [facility] Meningococcal 2012-02-14 Completed University of Vaccine 00:00:00 [facility] TDAP 2012-02-14 Completed University of 00:00:00 [facility] TDAP 2011-07-11 Completed University of 00:00:00 [facility] TDAP 2011-07-11 Completed University of 00:00:00 [facility] Influenza Virus 2011-05-11 Completed Universit y of Vaccine Nasal 00:00:00 [facility] Influenza Virus 2011-05-11 Completed Universit y of Vaccine - Whole 00:00:00 [facility] HPV 2011-05-11 Completed University of 00:00:00 [facility] Influenza Virus 2011-05-11 Completed Universit y of Vaccine - Whole 00:00:00 [facility] Influenza Virus 2011-05-11 Completed Universit y of Vaccine Nasal 00:00:00 [facility] HPV 2011-05-11 Completed University of 00:00:00 [facility] Influenza Virus 2011-05-11 Completed Universit y of Vaccine Nasal 00:00:00 [facility] Influenza Virus 2011-05-11 Completed Universit y of Vaccine - Whole 00:00:00 [facility] HPV 2011-05-11 Completed University of 00:00:00 [facility] HPV 2011-01-12 Completed University of 00:00:00 [facility] HPV 2011-01-12 Completed University of 00:00:00 [facility] HPV 2011-01-12 Completed University of 00:00:00 [facility] HPV 2010-11-10 Completed University of 00:00:00 [facility] HPV 2010-11-10 Completed University of 00:00:00 [facility] HPV 2010-11-10 Completed University of 00:00:00 [facility] Influenza Virus 2009-07-02 Completed Universit y of Vaccine 00:00:00 [facility] Influenza Virus 2009-07-02 Completed Universit y of Vaccine 00:00:00 [facility] Influenza Virus 2009-07-02 Completed Universit y of Vaccine 00:00:00 [facility] Varicella 2006-12-20 Completed University of (varivax)(chicken 00:00:00 [facility] edical pox) Branch Varicella 2006-12-20 Completed University of (varivax)(chicken 00:00:00 [facility] edical pox) Branch Varicella 2006-12-20 Completed University of (varivax)(chicken 00:00:00 [facility] edical pox) [place] HEPATITIS A 2005-09-06 Completed University of 00:00:00 [facility] HEPATITIS A 2005-09-06 Completed University of 00:00:00 [facility] HEPATITIS A 2005-09-06 Completed University of 00:00:00 [facility] HEPATITIS A 2005-03-03 Completed University of 00:00:00 [facility] HEPATITIS A 2005-03-03 Completed University of 00:00:00 [facility] HEPATITIS A 2005-03-03 Completed University of 00:00:00 [facility] MMR 2005-01-21 Completed University of 00:00:00 [facility] Pneumococcal 7 2005-01-21 Completed University of Conjugate, PCV7 00:00:00 [place] [facility] (Prevnar7) [place] Polio (IPV/OPV) 2005-01-21 Completed Universit y of 00:00:00 [facility] PPD (TB) 2005-01-21 Completed University of 00:00:00 [facility] DTAP 2005-01-21 Completed University of 00:00:00 [facility] MMR 2005-01-21 Completed University of 00:00:00 [facility] Pneumococcal 7 2005-01-21 Completed University of Conjugate, PCV7 00:00:00 [place] [facility] (Prevnar7) Branch Polio (IPV/OPV) 2005-01-21 Completed Universit y of 00:00:00 [facility] PPD (TB) 2005-01-21 Completed University of 00:00:00 [facility] DTAP 2005-01-21 Completed University of 00:00:00 [facility] MMR 2005-01-21 Completed University of 00:00:00 [facility] Pneumococcal 7 2005-01-21 Completed University of Conjugate, PCV7 00:00:00 [place] [facility] (Prevnar7) Branch Polio (IPV/OPV) 2005-01-21 Completed Universit y of 00:00:00 [facility] PPD (TB) 2005-01-21 Completed University of 00:00:00 [facility] DTAP 2005-01-21 Completed University of 00:00:00 [facility] Pneumococcal 7 2002-07-09 Completed University of Conjugate, PCV7 00:00:00 [place] [facility] (Prevnar7) Branch Pneumococcal 7 2002-07-09 Completed University of Conjugate, PCV7 00:00:00 [place] [facility] (Prevnar7) Branch Pneumococcal 7 2002-07-09 Completed University of Conjugate, PCV7 00:00:00 [facility] ical (Prevnar7) Branch Varicella 2002-03-20 Completed University of (varivax)(chicken 00:00:00 [place] [facility] pox) Branch DTAP 2002-03-20 Completed University of 00:00:00 [facility] Varicella 2002-03-20 Completed University of (varivax)(chicken 00:00:00 [place] [facility] pox) Branch DTAP 2002-03-20 Completed University of 00:00:00 [facility] Varicella 2002-03-20 Completed University of (varivax)(chicken 00:00:00 [place] [facility] pox) Branch DTAP 2002-03-20 Completed University of 00:00:00 [facility] MMR 2001-12-19 Completed University of 00:00:00 [facility] Polio (IPV/OPV) 2001-12-19 Completed Universit y of 00:00:00 [facility] PPD (TB) 2001-12-19 Completed University of 00:00:00 [facility] HIB 4 Dose Schedule 2001-12-19 Completed Unive rsity of 00:00:00 [facility] MMR 2001-12-19 Completed University of 00:00:00 [facility] Polio (IPV/OPV) 2001-12-19 Completed Universit y of 00:00:00 [facility] PPD (TB) 2001-12-19 Completed University of 00:00:00 [facility] HIB 4 Dose Schedule 2001-12-19 Completed Unive rsity of 00:00:00 [facility] MMR 2001-12-19 Completed University of 00:00:00 [facility] Polio (IPV/OPV) 2001-12-19 Completed Universit y of 00:00:00 [facility] PPD (TB) 2001-12-19 Completed University of 00:00:00 [facility] HIB 4 Dose Schedule 2001-12-19 Completed Unive rsity of 00:00:00 [facility] Hep B, Adol or Pedi 2001-10-03 Completed Unive rsity of Dosage 00:00:00 [facility] Hep B, Adol or Pedi 2001-10-03 Completed Unive rsity of Dosage 00:00:00 [facility] Hep B, Adol or Pedi 2001-10-03 Completed Unive rsity of Dosage 00:00:00 [facility] Pneumococcal 7 2001-08-02 Completed University of Conjugate, PCV7 00:00:00 [place] [facility] (Prevnar7) Branch DTAP 2001-08-02 Completed University of 00:00:00 [facility] HIB 4 Dose Schedule 2001-08-02 Completed Unive rsity of 00:00:00 [facility] Pneumococcal 7 2001-08-02 Completed University of Conjugate, PCV7 00:00:00 [place] [facility] (Prevnar7) Branch DTAP 2001-08-02 Completed University of 00:00:00 [facility] HIB 4 Dose Schedule 2001-08-02 Completed Unive rsity of 00:00:00 [facility] Pneumococcal 7 2001-08-02 Completed University of Conjugate, PCV7 00:00:00 [place] [facility] (Prevnar7) Branch DTAP 2001-08-02 Completed University of 00:00:00 [facility] HIB 4 Dose Schedule 2001-08-02 Completed Unive rsity of 00:00:00 [facility] Polio (IPV/OPV) 2001-05-10 Completed Universit y of 00:00:00 [facility] DTAP 2001-05-10 Completed University of 00:00:00 [facility] HIB 4 Dose Schedule 2001-05-10 Completed Unive rsity of 00:00:00 [facility] Hep B, Adol or Pedi 2001-05-10 Completed Unive rsity of Dosage 00:00:00 [facility] Polio (IPV/OPV) 2001-05-10 Completed Universit y of 00:00:00 [facility] DTAP 2001-05-10 Completed University of 00:00:00 [facility] HIB 4 Dose Schedule 2001-05-10 Completed Unive rsity of 00:00:00 [facility] Hep B, Adol or Pedi 2001-05-10 Completed Unive rsity of Dosage 00:00:00 [facility] Polio (IPV/OPV) 2001-05-10 Completed Universit y of 00:00:00 [facility] DTAP 2001-05-10 Completed University of 00:00:00 [facility] HIB 4 Dose Schedule 2001-05-10 Completed Unive rsity of 00:00:00 [facility] Hep B, Adol or Pedi 2001-05-10 Completed Unive rsity of Dosage 00:00:00 [facility] Pneumococcal 7 2001-02-14 Completed University of Conjugate, PCV7 00:00:00 [place] [facility] (Prevnar7) Branch Polio (IPV/OPV) 2001-02-14 Completed Universit y of 00:00:00 [facility] DTAP 2001-02-14 Completed University of 00:00:00 [facility] HIB 4 Dose Schedule 2001-02-14 Completed Unive rsity of 00:00:00 [facility] Pneumococcal 7 2001-02-14 Completed University of Conjugate, PCV7 00:00:00 [place] [facility] (Prevnar7) Branch Polio (IPV/OPV) 2001-02-14 Completed Universit y of 00:00:00 [facility] DTAP 2001-02-14 Completed University of 00:00:00 [facility] HIB 4 Dose Schedule 2001-02-14 Completed Unive rsity of 00:00:00 [facility] Pneumococcal 7 2001-02-14 Completed University of Conjugate, PCV7 00:00:00 [place] [facility] (Prevnar7) Branch Polio (IPV/OPV) 2001-02-14 Completed Universit y of 00:00:00 [facility] DTAP 2001-02-14 Completed University of 00:00:00 [facility] HIB 4 Dose Schedule 2001-02-14 Completed Unive rsity of 00:00:00 [facility] Hep B, Adol or Pedi 2000 Completed Unive rsity of Dosage 00:00:00 [facility] Hep B, Adol or Pedi 2000 Completed Unive rsity of Dosage 00:00:00 [facility] Hep B, Adol or Pedi 2000 Completed Unive rsity of Dosage 00:00:00 [facility] Vital Signs Vital Name Observation Time Observation Value Comments Source Systolic blood 2020-11-13 19:18:00 116 mm[Hg] Univer sity of pressure [facility] Diastolic blood 2020-11-13 19:18:00 71 mm[Hg] Unive rsity [facility] Heart rate 2020-11-13 19:18:00 97 /min [facility] Body temperature 2020-11-13 19:18:00 37.22 Christel [facility] Respiratory rate 2020-11-13 19:18:00 16 /min [facility] Body height 2020-11-13 19:18:00 157.5 cm [facility] Body weight 2020-11-13 19:18:00 69.174 kg [facility] BMI 2020-11-13 19:18:00 27.89 kg/m2 [facility] Procedures Procedure Date / Time Performed Performing Clinician Sourc e POCT URINALYSIS W/O 2020-11-13 19:09:00 Milagro Varela [facility] SPECIFIC GRAVITY [facility] POCT TEST 2020-11-13 19:08:00 Milagro Varela [facility] CONSENT/REFUSAL FOR 2020-11-13 18:36:33 Doctor Unassigned, No Un [facility] DIAGNOSIS AND Name [facility] TREATMENT Plan of Care Planned Activity Planned Date Details Comments Source Future Scheduled 2022-02-13 DTaP,Tdap,and Td Univers ity of Test 00:00:00 Vaccines (5 - Td) [facility] [code = Branch DTaP,Tdap,and Td Vaccines (5 - Td)] Future Scheduled 2022-02-13 DTaP,Tdap,and Td Univers ity of Test 00:00:00 Vaccines (5 - Td) [place] [facility] [code = Branch DTaP,Tdap,and Td Vaccines (5 - Td)] Future Scheduled 2022-02-13 DTaP,Tdap,and Td Univers ity of Test 00:00:00 Vaccines (7 - Td) [facility] carl [code = Branch DTaP,Tdap,and Td Vaccines (7 - Td)] Future Scheduled 2021-11-13 Screening for University of Test 00:00:00 Chlamydia [place] [facility] trachomatis Branch (procedure) [code = 941689115] Future Scheduled 2021-11-13 Depression screening Uni versity of Test 00:00:00 (procedure) [code = [facility] dical 256020510] Branch Future Scheduled 2021-11-13 MENINGOCOCCAL B Postponed from Univer sity of Test 00:00:00 VACCINES (1 of 2 - 2010 [place] [facility] ical Risk Bexsero 2-dose ( or Branch series) [code = ) MENINGOCOCCAL B VACCINES (1 of 2 - Risk Bexsero 2-dose series)] Future Scheduled 2021-11-13 Screening for University of Test 00:00:00 Chlamydia [place] [facility] trachomatis Branch (procedure) [code = 644058719] Future Scheduled 2021-11-13 Depression screening Uni versity of Test 00:00:00 (procedure) [code = [place] [facility] dical 695148988] Branch Future Scheduled 2021-11-13 MENINGOCOCCAL B Postponed [...] of Pending 00:00:00 PRANDIAL [code = 11/13/2020, [place] [facility] 41292-3] Expires: Branch 11/13/2021 Future Scheduled 2018 Hepatitis C University of Test 00:00:00 screening [place] [facility] (procedure) [code = Branch 216758076] Future Scheduled 2018 Hepatitis C University of Test 00:00:00 screening [place] [facility] (procedure) [code = Branch 492590297] Future Scheduled 2018 Hepatitis C University of Test 00:00:00 screening [place] [facility] (procedure) [code = Branch 849233541] Future Scheduled 2017-05-27 Well child visit Univers ity of Test 00:00:00 (procedure) [code = [facility] dical [id number]] Branch Future Scheduled 2016 SARS-CoV-2 University of Test 00:00:00 (COVID-19) Vaccine [place] [facility] (1) [code = Branch SARS-CoV-2 (COVID-19) Vaccine (1)] Future Scheduled 2016 SARS-CoV-2 University of Test 00:00:00 (COVID-19) Vaccine [place] [facility] (1) [code = Branch SARS-CoV-2 (COVID-19) Vaccine (1)] Future Scheduled 2016 Screening for University of Test 00:00:00 Chlamydia [place] [facility] trachomatis Branch (procedure) [code = 553363872] Future Scheduled 2016 SARS-CoV-2 University of Test 00:00:00 (COVID-19) Vaccine [place] [facility] (1) [code = Branch SARS-CoV-2 (COVID-19) Vaccine (1)] Future Scheduled 2012 Depression screening Uni versity of Test 00:00:00 (procedure) [code = [place] [facility] dical 284697079] Branch Future Scheduled 2010 MENINGOCOCCAL B Universi ty of Test 00:00:00 VACCINES (1 of 2 - [place] [facility] ical Risk Bexsero 2-dose Branch series) [code = MENINGOCOCCAL B VACCINES (1 of 2 - Risk Bexsero 2-dose series)] Future Scheduled CBC WITH DIFF [code Univ ersity of Test = 47526-4] [facility] Future Scheduled GC & CHLAMYDIA Universit y of Test AMPLIFIED ASSAY [place] [facility] [code = 88332-1] Branch Future Scheduled HEPATITIS B SURFACE Univ ersity of Test ANTIGEN [code = [place] [facility] 78603-3] Branch Future Scheduled HIV 1/2 AG-AB WITH Unive rsity of Test REFLEX [code = [facility] 61360-1] Branch Future Scheduled RUBELLA SCREEN Universit y of Test (MARTIN) IGG [code = [place] [facility] 11243-5] Branch Future Scheduled GALV ONLY - SYPHILIS Uni versity of Test IGG/IGM [code = [place] [facility] 34432-3] Branch Future Scheduled URINE CULTURE [code Univ ersity of Test = 630-4] [facility] Future Scheduled THYROID STIMULATING Univ ersity of Test HORMONE [code = [place] [facility] 04663-7] Branch Future Scheduled GLUCOSE 1 HOUR POST Univ ersity of Test PRANDIAL [code = [place] [facility] 68974-8] Branch Future Scheduled WORKUP, Ordered: Univers ity of Test BLOOD BANK [code = 11/13/2020 [place] [facility] 3113] Branch Future Scheduled POCT URINALYSIS W/O 20 Occurrences Un iversity of Test SPECIFIC GRAVITY starting [place] [facility] [code = 12333] 11/13/2020 until Branch 11/13/2021 Encounters Start End Encounter Admission Attending Care Care Encounter Source Date/Time Date/Time Type Type Clinicians Facility Department ID 2021-01-16 2021-01-16 Telephone Tony [facility] [id number] 00:00:00 00:00:00 Harjit Torres [facility] [id number] REGIONAL [id number] MATERNAL [id number] & CHILD 107 [facility] 2021-01-06 2021-01-06 Routine Avery, [facility] [id number] 12:52:07 13:11:46 Milagro Estevez 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[employer]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 [id number] Visit [facility] [id number] MATERNAL [id number] & CHILD 107 [facility] 2021-01-01 2021-01-01 Signals Intelligence Superintendent Lora, [facility] [id number] 13:58:50 14:39:43 Visit [facility] 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
[2021-01-16 19:11] LABS: Urine Blood Negative (Negative); Urine Glucose Negative (Negative); Urine Protein Negative (Negative); Urine Specific Gravity 1.025 (1.005-1.030); Urine pH 6.5 (5.0-7.0)
[2021-01-16 19:23] LABS: Absolute Lymphocytes (CBC) 1.4 K/uL (0.7-4.9); Basophils % 0.5 % (0-1.3); Hematocrit 32.5 % (36.0-45.0); Lymphocytes % 17.8 % (15.3-44.8); MPV 7.9 fL (7.6-11.3); RBC Red Blood Cell Count 4.02 M/uL (3.86-4.86)
[2021-01-16 19:29] LABS: Urine Specific Gravity/Preg 1.025 (1.005-1.030)
[2021-01-16 19:33] LABS: BUN Blood Urea Nitrogen 6 mg/dL (7-18); Bicarbonate 25 mmol/L (21-32); Glucose Level 79 mg/dL (74-106); Potassium 3.3 mmol/L (3.5-5.1); Sodium Level 138 mmol/L (136-145)
[2021-01-16] MEDS ORDERED: D5 0.9 NS 1,000 ML IV ONE (20:16)
[2021-01-16] MEDS ORDERED: ONDANSETRON 4 MG/2 ML VIAL ONE (20:16)
[2021-01-16] MEDS ORDERED: ACETAMINOPHEN 500 MG TAB ONE (20:26)
--- NOTE | 2021-01-16 22:02 | EDPHYS ---
Physician Documentation [facility] Name: Anil Barney Age: 20 yrs Sex: Female : 2000 Arrival Date: 01/16/2021 Time: 15:38 Bed 18 Private MD: ED Physician Surendra Sky HPI: 01/16 19:50 This 20 yrs old Female presents to ER via Ambulatory with complaints of mh7 dehydration- 15 wks preg. 19:50 The patient presents to the emergency department with nausea, that is moderate, mh7 vomiting, that is intermittent, described as clear fluid. Onset: The symptoms/episode began/occurred 1 week(s) ago, Intermittent for 3 months. Possible causes: . The symptoms are aggravated by nothing. The symptoms are alleviated by nothing. Associated signs and symptoms: Pertinent positives: constipation, nausea, vomiting, Pertinent negatives: abdominal pain, anorexia, belching, diarrhea, dysuria, fever, flatulence, GI bleeding, hematuria, vaginal discharge. Severity of symptoms: At their worst the symptoms were moderate 5 day(s) ago, in the emergency department the symptoms are unchanged. States that she is 15 weeks and has had normal US during this . 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 - Social history:: Smoking status: Patient denies any tobacco usage or history of. ROS: 19:50 Constitutional: Negative for fever, chills, and weight loss, Eyes: Negative for injury, mh7 pain, redness, and discharge, ENT: Negative for injury, pain, and discharge, Neck: Negative for injury, pain, and swelling, Cardiovascular: Negative for chest pain, palpitations, and edema, Respiratory: Negative for shortness of breath, cough, wheezing, and pleuritic chest pain. 19:50 Back: Negative for injury and pain, : Negative for injury, bleeding, discharge, and swelling, MS/Extremity: Negative for injury and deformity, Skin: Negative for injury, rash, and discoloration, Neuro: Negative for headache, weakness, numbness, tingling, and seizure, Psych: Negative for depression, anxiety, suicide ideation, homicidal ideation, and hallucinations, Allergy/Immunology: Negative for hives, rash, and allergies, Endocrine: Negative for neck swelling, polydipsia, polyuria, polyphagia, and marked weight changes, Hematologic/Lymphatic: Negative for swollen nodes, abnormal bleeding, and unusual bruising. 19:50 Abdomen/GI: Negative for abdominal pain, diarrhea, abdominal cramps, abdominal distension, anorexia, dysphagia, hematemesis, black/tarry stool, rectal pain, rectal bleeding, bowel incontinence, flatulence. Exam: 19:50 Constitutional: This is a well developed, well nourished patient who is awake, alert, mh7 and in no acute distress. Head/Face: Normocephalic, atraumatic. Eyes: Pupils equal round and reactive to light, extra-ocular motions intact. Lids and lashes normal. Conjunctiva and sclera are non-icteric and not injected. Cornea within normal limits. Periorbital areas with no swelling, redness, or edema. Neck: Trachea midline, no thyromegaly or masses palpated, and no cervical lymphadenopathy. Supple, full range of motion without nuchal rigidity, or vertebral point tenderness. No Meningismus. Chest/axilla: Normal chest wall appearance and motion. Nontender with no deformity. No lesions are appreciated. Cardiovascular: Regular rate and rhythm with a normal S1 and S2. No gallops, murmurs, or rubs. Normal PMI, no JVD. No pulse deficits. Respiratory: Lungs have equal breath sounds bilaterally, clear to auscultation and percussion. No rales, rhonchi or wheezes noted. No increased work of breathing, no retractions or nasal flaring. Abdomen/GI: Soft, non-tender, with normal bowel sounds. No distension or tympany. No guarding or rebound. No evidence of tenderness throughout. Back: No spinal tenderness. No costovertebral tenderness. Full range of motion. Skin: Warm, dry with normal turgor. Normal color with no rashes, no lesions, and no evidence of cellulitis. MS/ Extremity: Pulses equal, no cyanosis. Neurovascular intact. Full, normal range of motion. Neuro: Awake and alert, GCS 15, oriented to person, place, time, and situation. Cranial nerves II-XII grossly intact. Motor strength 5/5 in all extremities. Sensory grossly intact. Cerebellar exam normal. Normal gait. Psych: Awake, alert, with orientation to person, place and time. Behavior, mood, and affect are within normal limits. Vital Signs: 15:41 BP 102 / 61; Pulse 99; Resp 16; Temp 98.4; Pulse Ox 100% ; Weight 66.68 kg; Height 5 vg1 ft. 2 in. (157.48 cm); Pain 0/10; 17:30 BP 100 / 59; Pulse 87; Resp 16; Pulse Ox 100% ; bp 18:30 BP 94 / 54; Pulse 75; Resp 16; Pulse Ox 100% ; bp 22:03 BP 118 / 60; Pulse 70; Resp 16; Pulse Ox 99% ; ea 15:41 Body Mass Index 26.89 (66.68 kg, 157.48 cm) vg1 MDM: 21:59 Differential diagnosis: gastritis, viral gastroenteritis, gastroenteritis, Hyperemesis mh7 Gravidarum. Data reviewed: vital signs, nurses notes, lab test result(s), Beta HCG: CBC, electrolytes, urinalysis, UPT: positive. Counseling: I had a detailed discussion with the patient and/or guardian regarding: the historical points, exam findings, and any diagnostic results supporting the discharge/admit diagnosis, lab results, the need for outpatient follow up, an OB/Gyne specialist, to return to the emergency department if symptoms worsen or persist or if there are any questions or concerns that arise at home. Response to treatment: the patient's symptoms have resolved after treatment, the patient's blood pressure is in an acceptable range, mental status has returned to baseline, the patient no longer shows bradycardia, the patient is not short of breath, the patient is not tachycardic, the patient's pain is gone, the patient's temperature has normalized, the patient's condition has returned to base line, patient is well hydrated. 22:02 Patient medically screened. mh7 01/16 18:49 Order name: CBC with Diff; Complete Time: 21:09 kdr 01/16 18:49 Order name: Chem 7; Complete Time: 19:35 kdr 01/16 19:10 Order name: Urine Dipstick-Ancillary; Complete Time: 19:35 EDIN 01/16 19:13 Order name: Urine --Ancillary (enter results) tt3 01/16 19:14 Order name: Urine --Ancillary; Complete Time: 19:35 EDMS 01/16 19:37 Order name: HCG-Quantitative; Complete Time: 21:09 7 01/16 18:49 Order name: Urine Dipstick-Ancillary (obtain specimen); Complete Time: 19:00 kdr 01/16 19:37 Order name: Heart Tones; Complete Time: 21:17 [facility] Administered Medications: 19:00 Drug: NS 0.9% 1000 ml Route: IV; Rate: 1 bolus; Site: right forearm; bp 20:30 Follow up: Response: No adverse reaction; IV Status: Completed infusion; IV Intake: ea 1000ml 20:03 Drug: D5-NS 1000 ml Route: IV; Rate: per protocol; Site: right antecubital; em 21:50 Follow up: Response: No adverse reaction; IV Status: Completed infusion; IV Intake: ea 1000ml 20:03 Drug: Zofran (Ondansetron) 4 mg Route: IVP; Site: right antecubital; em 22:01 Follow up: Response: No adverse reaction ea 20:09 Drug: Tylenol 1000 mg Route: PO; ea 22:02 Follow up: Response: No adverse reaction ea Disposition Summary: 01/16/21 22:02 Discharge Ordered Location: Home [facility] Problem: an ongoing problem 7 Symptoms: have improved mh7 Condition: Stable 7 Diagnosis - Hyperemesis Gravidarum 7 Followup: 7 - With: Private Physician - When: 1 - 2 days - Reason: Worsening of condition, Recheck today's complaints, Continuance of care, Re-evaluation by your physician Discharge Instructions: - Discharge Summary Sheet ea - Hyperemesis Gravidarum [facility] Forms: - Medication Reconciliation Form mh7 - Work release form ea - Thank You Letter 7 - Antibiotic Education 7 - Prescription Opioid Use [facility] Prescriptions: - ondansetron 4 mg Oral tablet,disintegrating - place 1 tablet by TRANSLINGUAL route every 8 hours As needed; 10 tablet; mh7 Refills: 0, Product Selection Permitted - Colace 100 mg Oral Tablet - take 1 tablet by ORAL route every 12 hours; 14 tablet; Refills: 0, Product 7 Selection Permitted Signatures: Dispatcher [employer] Everett Carpio MD MD kdr Tripp Guerin, RN RN Concha Rockwell RN Jamarcus Flaherty ea, RN RN bp Garcia, Victoria, RN RN vg1 Surendra Sky MD MD mh7
--- NOTE | 2021-01-16 22:02 | ER ---
Nurse's Notes [facility] Name: Anil Barney Age: 20 yrs Sex: Female : 2000 Arrival Date: 01/16/2021 Time: 15:38 Bed 18 Private MD: Diagnosis: Hyperemesis Gravidarum Presentation: 01/16 15:41 Chief complaint: Patient states: Has been N/V, headache, and feeling tired for about a vg1 week. Stated was seen in ED for same thing about a month ago. Pt is currently 15 weeks . Coronavirus screen: Client denies travel out of the [place] in the last 14 days. Ebola Screen: Patient negative for fever greater than or equal to 101.5 degrees Fahrenheit, and additional compatible Ebola Virus Disease symptoms. Initial Sepsis Screen: Does the patient meet any 2 criteria? No. Patient's initial sepsis screen is negative. Does the patient have a suspected source of infection? No. Patient's initial sepsis screen is negative. Risk Assessment: Do you want to hurt yourself or someone else? Patient reports no desire to harm self or others. Onset of symptoms was January 09, 2021. 15:41 Method Of Arrival: Ambulatory vg1 15:41 Acuity: HEMALATHA 3 vg1 Triage Assessment: 15:43 General: Appears in no apparent distress. comfortable, Behavior is calm, cooperative. vg1 Pain: Denies pain. 15:45 General: Appears in no apparent distress. comfortable, Behavior is cooperative, bp appropriate for age, anxious. Pain: Denies pain. EENT: No deficits noted. Neuro: Level of Consciousness is awake, alert, obeys commands, Oriented to Appropriate for age. Cardiovascular: No deficits noted. Respiratory: No deficits noted. GI: No signs and/or symptoms were reported involving the gastrointestinal system. : No signs and/or symptoms were reported regarding the genitourinary system. Derm: No deficits noted. Musculoskeletal: No deficits noted. 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 - Social history:: Smoking status: Patient denies any tobacco usage or history of. Screenin:45 Abuse screen: Denies threats or abuse. Denies injuries from another. Nutritional bp screening: No deficits noted. Tuberculosis screening: No symptoms or risk factors identified. Fall Risk None identified. Assessment: 15:45 General: SEE TRIAGE NOTE. bp 17:30 Reassessment: No changes from previously documented assessment. Patient and/or family bp updated on plan of care and expected duration. Pain level reassessed. Patient is alert, oriented x 3, equal unlabored respirations, skin warm/dry/pink. 18:30 Reassessment: No changes from previously documented assessment. Patient and/or family bp updated on plan of care and expected duration. Pain level reassessed. Patient is alert, oriented x 3, equal unlabored respirations, skin warm/dry/pink. Patient denies pain at this time. 21:20 Reassessment: Patient and/or family updated on plan of care and expected duration. Pain ea level reassessed. Patient is alert, oriented x 3, equal unlabored respirations, skin warm/dry/pink. 21:20 Reassessment: Patient states feeling better. ea 22:09 Reassessment: Patient and/or family updated on plan of care and expected duration. Pain ea level reassessed. Patient is alert, oriented x 3, equal unlabored respirations, skin warm/dry/pink. Discharge instruction given to patient verbalized the understanding of instruction. Patient states feeling better. Vital Signs: 15:41 BP 102 / 61; Pulse 99; Resp 16; Temp 98.4; Pulse Ox 100% ; Weight 66.68 kg; Height 5 vg1 ft. 2 in. (157.48 cm); Pain 0/10; 17:30 BP 100 / 59; Pulse 87; Resp 16; Pulse Ox 100% ; bp 18:30 BP 94 / 54; Pulse 75; Resp 16; Pulse Ox 100% ; bp 22:03 BP 118 / 60; Pulse 70; Resp 16; Pulse Ox 99% ; ea 15:41 Body Mass Index 26.89 (66.68 kg, 157.48 cm) vg1 ED Course: 15:38 Patient arrived in ED. as 15:43 Triage completed. vg1 15:43 Arm band placed on Patient placed in waiting room, Patient notified of wait time. vg1 15:45 Patient has correct armband on for positive identification. Bed in low position. Call bp light in reach. Side rails up X2. Adult w/ patient. 16:41 Everett Alonzo MD is Attending Physician. kdr 18:40 Jamarcus Richards, RN is Primary Nurse. bp 19:00 Inserted saline lock: 20 gauge in right forearm, using aseptic technique. Blood bp collected. 19:04 Attending Physician role handed off by Everett Alonzo MD [facility] 19:04 Surendra Sky MD is Attending Physician. [facility] 21:08 heart tones at 164bpm with doppler. jb5 21:59 No provider procedures requiring assistance completed. IV discontinued, intact, ea bleeding controlled, No redness/swelling at site. Pressure dressing applied. Administered Medications: 19:00 Drug: NS 0.9% 1000 ml Route: IV; Rate: 1 bolus; Site: right forearm; bp 20:30 Follow up: Response: No adverse reaction; IV Status: Completed infusion; IV Intake: ea 1000ml 20:03 Drug: D5-NS 1000 ml Route: IV; Rate: per protocol; Site: right antecubital; em 21:50 Follow up: Response: No adverse reaction; IV Status: Completed infusion; IV Intake: ea 1000ml 20:03 Drug: Zofran (Ondansetron) 4 mg Route: IVP; Site: right antecubital; em 22:01 Follow up: Response: No adverse reaction ea 20:09 Drug: Tylenol 1000 mg Route: PO; ea 22:02 Follow up: Response: No adverse reaction ea Intake: 20:30 IV: 1000ml; Total: 1000ml. ea 21:50 IV: 1000ml; Total: 2000ml. ea Outcome: 22:02 Discharge ordered by . [facility] 22:09 Discharged to home ambulatory, with family. ea 22:09 Condition: stable 22:09 Discharge instructions given to patient, Instructed on discharge instructions, follow up and referral plans. medication usage, Demonstrated understanding of instructions, follow-up care, medications, Prescriptions given X 2. 22:10 Patient left the ED. ea Signatures: Everett Alonzo MD MD kdr Munoz, Edgar, RN RN em Martinez, Amelia as Broussard, Jennifer 5 Concha Iglesias RN RN ea Peltier, Brian RN RN bp Elisabeth Hernandez, RN RN vg1 Surendra Sky MD MD mh7
[2021-01-16 22:19] VITALS: TEMP 98.4
[2021-01-16 22:22] VITALS: BP 118/60; O2SAT 99
== END 2021-01-16 22:10 | disposition home or self-care (01) ==
LOC: ER 15:29
DX: O21.0 Mild hyperemesis gravidarum (principal); Z3A.15 15 weeks gestation of pregnancy
CPT/HCPCS: 96361; 85025; 80048; 36415; 81025; 84702; 81003; 96374; 99284; J7042; J2405

== ENCOUNTER 2021-02-05 23:52 | Emergency (ER) | payer OTHER ==
--- OUTSIDE RECORDS SUMMARY | 2021-02-05 23:55 | XMS REPORT | Continuity of Care Document ---
:2000 Author Organization [facility] t Address [address] [place] [address] Care Team Providers Name Role Phone Tony ORTIZ, R Primary Care Physician Avery ORTIZ, N Attending Clinician Tony ORTIZ, R Attending Clinician Lab Attending Clinician Unavailable Doctor Unassigned, Name Attending Clinician Unavailable Payers Payer Name Policy Type Policy Number Effective Expiration Source Date Date MEDICAID PENDING 2020 [facility] [place] [facility] PENDINGPENDING19 [facility] [id number] [place] [id number] [id number] 2013 [facility] 00:00:00 [place] [facility] CHOICE [id number] 13-[id number] [place] [id number] Advance Directives Directive Decision Effective Termination Comments Source Date Date Healthcare Agents on N/A [facility] FileNameRelationshipHealthcare [facility] Agent Medical RelationshipCommunicationApopka Branch ZamudioMotherHealth Care [phone] (Mobile) [facility] [phone] (Home) Problems Condition Condition Condition Status Onset Resolution Last Treating Co mments Source Name Details Category Date Date Treatment Clinician Date Folliculit Folliculit Disease Resolve 2015-072020-11-13 2020-11-13 Univers is is d -17 00:00:00 18:54:48 ity of 00:00: [place] 00 [facility] Dermatitis Dermatitis Disease Resolve 2015-072020-11-13 2020-11-13 Univers d 07-27 00:00:00 18:54:48 ity of 00:00: [place] [facility] Passive Passive Disease Resolve 2015-072020-11-13 [...] 00:00:00 15:53:45 ity of 00:00: [place] [facility] Poor Poor Disease Resolve 2016-05-27 2016-05-27 Univers nutrition nutrition d 03-20 00:00:00 14:18:21 ity of 00:00: [place] [facility] Iron Iron Disease Resolve 2015-05-07 [...] Comments Source ASSERTION 2020-10-17 University of 00:00:00 [facility] Exposure to Not sure University of SARS-CoV-2 [facility] (event) Branch Tobacco use and 2020-11-13 2020-11-13 Never used Universit y of exposure 00:00:00 00:00:00 [facility] Alcohol intake 2020-11-13 2020-11-13 Current University of 00:00:00 00:00:00 non-drinker of [facility] alcohol Branch (finding) Tobacco Comment 2020-11-13 2020-11-13 last vaped last Univ ersity of 00:00:00 00:00:00 week [facility] Sex Assigned At 2000 2000 Universit y of 00:00:00 00:00:00 [facility] Smoking Status Start Date Stop Date Source Former smoker 2020-11-13 00:00:00 2020-11-13 00:00:00 Universi ty of [facility] Never smoker [facility] Branch Medications Ordered Filled Start Stop Current Ordering Indication Dosage Frequency Signature Comments Components Source Medication Medication Date Date Medication? Clinician (SIG) Name Name hydrocortis 2015-07 Yes Folliculiti Apply to Univers one 1 % 1-17 s area(s) ity of cream 00:00: daily. [address] clindamycin 2015-07 Yes Folliculiti Apply to Univers (CLINDAGEL) 1-17 s area(s) 2 ity of 1 % gel 00:00: (two) [place] 00 times Medical daily. Branch hydrocortis 2015-07- No Folliculiti Apply to Univers one 1 % 1-17 05-06 s area(s) ity of cream 00:00: 00:00 daily. [place] 00 :00 [facility] clindamycin 2015-07- No Folliculiti Apply to Univers (CLINDAGEL) 1-17 05-06 s area(s) 2 it y of 1 % gel 00:00: 00:00 (two) [place] 00 :00 times Medical daily. Branch Immunizations Ordered Immunization Filled Immunization Date Status Commen ts Source Name Name Influenza Virus 2016-05-27 Completed Universit y of Vaccine Quad IM 3+ 00:00:00 [facility] Influenza Virus 2016-05-27 Completed Universit y of Vaccine Quad IM 3+ 00:00:00 [facility] Influenza Virus 2016-05-27 Completed Universit y of Vaccine Quad IM 3+ 00:00:00 [facility] Influenza Virus 2015-05-07 Completed Universit y of Vaccine Quad Nasal 00:00:00 [facility] Influenza Virus 2015-05-07 Completed Universit y of Vaccine Quad Nasal 00:00:00 [facility] Influenza Virus 2015-05-07 Completed Universit y of Vaccine Quad Nasal 00:00:00 [facility] Influenza Virus 2014-05-01 Completed Universit y of Vaccine Quad Nasal 00:00:00 [facility] Influenza Virus 2014-05-01 Completed Universit y of Vaccine Quad Nasal 00:00:00 [facility] Influenza Virus 2014-05-01 Completed Universit y of Vaccine Quad Nasal 00:00:00 [facility] Influenza Virus 2013-04-26 Completed Universit y of Vaccine Nasal 00:00:00 [facility] Influenza Virus 2013-04-26 Completed Universit y of Vaccine Nasal 00:00:00 [facility] Influenza Virus 2013-04-26 Completed Universit y of Vaccine Nasal 00:00:00 [facility] Meningococcal 2012-02-14 Completed University of Vaccine 00:00:00 [facility] TDAP 2012-02-14 Completed University of 00:00:00 [facility] Meningococcal 2012-02-14 Completed University of Vaccine 00:00:00 [facility] TDAP 2012-02-14 Completed University of 00:00:00 [facility] Meningococcal 2012-02-14 Completed University of Vaccine 00:00:00 [facility] TDAP 2012-02-14 Completed University of 00:00:00 [facility] TDAP 2011-07-11 Completed University of 00:00:00 [facility] TDAP 2011-07-11 Completed University of 00:00:00 [facility] Influenza Virus 2011-05-11 Completed Universit y of Vaccine Nasal 00:00:00 [facility] Influenza Virus 2011-05-11 Completed Universit y of Vaccine - Whole 00:00:00 [facility] HPV 2011-05-11 Completed University of 00:00:00 [facility] Influenza Virus 2011-05-11 Completed Universit y of Vaccine - Whole 00:00:00 [facility] Influenza Virus 2011-05-11 Completed Universit y of Vaccine Nasal 00:00:00 [facility] HPV 2011-05-11 Completed University of 00:00:00 [facility] Influenza Virus 2011-05-11 Completed Universit y of Vaccine Nasal 00:00:00 [facility] Influenza Virus 2011-05-11 Completed Universit y of Vaccine - Whole 00:00:00 [facility] HPV 2011-05-11 Completed University of 00:00:00 [facility] HPV 2011-01-12 Completed University of 00:00:00 [facility] HPV 2011-01-12 Completed University of 00:00:00 [facility] HPV 2011-01-12 Completed University of 00:00:00 [facility] HPV 2010-11-10 Completed University of 00:00:00 [facility] HPV 2010-11-10 Completed University of 00:00:00 [facility] HPV 2010-11-10 Completed University of 00:00:00 [facility] Influenza Virus 2009-07-02 Completed Universit y of Vaccine 00:00:00 [facility] Influenza Virus 2009-07-02 Completed Universit y of Vaccine 00:00:00 [facility] Influenza Virus 2009-07-02 Completed Universit y of Vaccine 00:00:00 [facility] Varicella 2006-12-20 Completed University of (varivax)(chicken 00:00:00 [facility] edical pox) Branch Varicella 2006-12-20 Completed University of (varivax)(chicken 00:00:00 [facility] edical pox) Branch Varicella 2006-12-20 Completed University of (varivax)(chicken 00:00:00 [facility] edical pox) [place] HEPATITIS A 2005-09-06 Completed University of 00:00:00 [facility] HEPATITIS A 2005-09-06 Completed University of 00:00:00 [facility] HEPATITIS A 2005-09-06 Completed University of 00:00:00 [facility] HEPATITIS A 2005-03-03 Completed University of 00:00:00 [facility] HEPATITIS A 2005-03-03 Completed University of 00:00:00 [facility] HEPATITIS A 2005-03-03 Completed University of 00:00:00 [facility] MMR 2005-01-21 Completed University of 00:00:00 [facility] Pneumococcal 7 2005-01-21 Completed University of Conjugate, PCV7 00:00:00 [place] [facility] [facility] (Prevnar7) [place] Polio (IPV/OPV) 2005-01-21 Completed Universit y of 00:00:00 [facility] PPD (TB) 2005-01-21 Completed University of 00:00:00 [facility] DTAP 2005-01-21 Completed University of 00:00:00 [facility] MMR 2005-01-21 Completed University of 00:00:00 [facility] Pneumococcal 7 2005-01-21 Completed University of Conjugate, PCV7 00:00:00 [place] [facility] [facility] (Prevnar7) Branch Polio (IPV/OPV) 2005-01-21 Completed Universit y of 00:00:00 [facility] PPD (TB) 2005-01-21 Completed University of 00:00:00 [facility] DTAP 2005-01-21 Completed University of 00:00:00 [facility] MMR 2005-01-21 Completed University of 00:00:00 [facility] Pneumococcal 7 2005-01-21 Completed University of Conjugate, PCV7 00:00:00 [place] [facility] [facility] (Prevnar7) Branch Polio (IPV/OPV) 2005-01-21 Completed Universit y of 00:00:00 [facility] PPD (TB) 2005-01-21 Completed University of 00:00:00 [facility] DTAP 2005-01-21 Completed University of 00:00:00 [facility] Pneumococcal 7 2002-07-09 Completed University of Conjugate, PCV7 00:00:00 [place] [facility] [facility] (Prevnar7) Branch Pneumococcal 7 2002-07-09 Completed University of Conjugate, PCV7 00:00:00 [place] [facility] (Prevnar7) Branch Pneumococcal 7 2002-07-09 Completed University of Conjugate, PCV7 00:00:00 [facility] ical (Prevnar7) Branch Varicella 2002-03-20 Completed University of (varivax)(chicken 00:00:00 [place] [facility] edical pox) Branch DTAP 2002-03-20 Completed University of 00:00:00 [facility] Varicella 2002-03-20 Completed University of (varivax)(chicken 00:00:00 [place] [facility] edical pox) Branch DTAP 2002-03-20 Completed University of 00:00:00 [facility] Varicella 2002-03-20 Completed University of (varivax)(chicken 00:00:00 [place] [facility] edical pox) Branch DTAP 2002-03-20 Completed University of 00:00:00 [facility] MMR 2001-12-19 Completed University of 00:00:00 [facility] Polio (IPV/OPV) 2001-12-19 Completed Universit y of 00:00:00 [facility] PPD (TB) 2001-12-19 Completed University of 00:00:00 [facility] HIB 4 Dose Schedule 2001-12-19 Completed Unive rsity of 00:00:00 [facility] MMR 2001-12-19 Completed University of 00:00:00 [facility] Polio (IPV/OPV) 2001-12-19 Completed Universit y of 00:00:00 [facility] PPD (TB) 2001-12-19 Completed University of 00:00:00 [facility] HIB 4 Dose Schedule 2001-12-19 Completed Unive rsity of 00:00:00 [facility] MMR 2001-12-19 Completed University of 00:00:00 [facility] Polio (IPV/OPV) 2001-12-19 Completed Universit y of 00:00:00 [facility] PPD (TB) 2001-12-19 Completed University of 00:00:00 [facility] HIB 4 Dose Schedule 2001-12-19 Completed Unive rsity of 00:00:00 [facility] Hep B, Adol or Pedi 2001-10-03 Completed Unive rsity of Dosage 00:00:00 [facility] Hep B, Adol or Pedi 2001-10-03 Completed Unive rsity of Dosage 00:00:00 [facility] Hep B, Adol or Pedi 2001-10-03 Completed Unive rsity of Dosage 00:00:00 [facility] Pneumococcal 7 2001-08-02 Completed University of Conjugate, PCV7 00:00:00 [place] [facility] (Prevnar7) Branch DTAP 2001-08-02 Completed University of 00:00:00 [facility] HIB 4 Dose Schedule 2001-08-02 Completed Unive rsity of 00:00:00 [facility] Pneumococcal 7 2001-08-02 Completed University of Conjugate, PCV7 00:00:00 [place] [facility] (Prevnar7) Branch DTAP 2001-08-02 Completed University of 00:00:00 [facility] HIB 4 Dose Schedule 2001-08-02 Completed Unive rsity of 00:00:00 [facility] Pneumococcal 7 2001-08-02 Completed University of Conjugate, PCV7 00:00:00 [place] [facility] (Prevnar7) Branch DTAP 2001-08-02 Completed University of 00:00:00 [facility] HIB 4 Dose Schedule 2001-08-02 Completed Unive rsity of 00:00:00 [facility] Polio (IPV/OPV) 2001-05-10 Completed Universit y of 00:00:00 [facility] DTAP 2001-05-10 Completed University of 00:00:00 [facility] HIB 4 Dose Schedule 2001-05-10 Completed Unive rsity of 00:00:00 [facility] Hep B, Adol or Pedi 2001-05-10 Completed Unive rsity of Dosage 00:00:00 [facility] Polio (IPV/OPV) 2001-05-10 Completed Universit y of 00:00:00 [facility] DTAP 2001-05-10 Completed University of 00:00:00 [facility] HIB 4 Dose Schedule 2001-05-10 Completed Unive rsity of 00:00:00 [facility] Hep B, Adol or Pedi 2001-05-10 Completed Unive rsity of Dosage 00:00:00 [facility] Polio (IPV/OPV) 2001-05-10 Completed Universit y of 00:00:00 [facility] DTAP 2001-05-10 Completed University of 00:00:00 [facility] HIB 4 Dose Schedule 2001-05-10 Completed Unive rsity of 00:00:00 [facility] Hep B, Adol or Pedi 2001-05-10 Completed Unive rsity of Dosage 00:00:00 [facility] Pneumococcal 7 2001-02-14 Completed University of Conjugate, PCV7 00:00:00 [place] [facility] [facility] (Prevnar7) Branch Polio (IPV/OPV) 2001-02-14 Completed Universit y of 00:00:00 [facility] DTAP 2001-02-14 Completed University of 00:00:00 [facility] HIB 4 Dose Schedule 2001-02-14 Completed Unive rsity of 00:00:00 [facility] Pneumococcal 7 2001-02-14 Completed University of Conjugate, PCV7 00:00:00 [place] [facility] (Prevnar7) Branch Polio (IPV/OPV) 2001-02-14 Completed Universit y of 00:00:00 [facility] DTAP 2001-02-14 Completed University of 00:00:00 [facility] HIB 4 Dose Schedule 2001-02-14 Completed Unive rsity of 00:00:00 [facility] Pneumococcal 7 2001-02-14 Completed University of Conjugate, PCV7 00:00:00 [place] [facility] (Prevnar7) Branch Polio (IPV/OPV) 2001-02-14 Completed Universit y of 00:00:00 [facility] DTAP 2001-02-14 Completed University of 00:00:00 [facility] HIB 4 Dose Schedule 2001-02-14 Completed Unive rsity of 00:00:00 [facility] Hep B, Adol or Pedi 2000 Completed Unive rsity of Dosage 00:00:00 [facility] Hep B, Adol or Pedi 2000 Completed Unive rsity of Dosage 00:00:00 [facility] Hep B, Adol or Pedi 2000 Completed Unive rsity of Dosage 00:00:00 [facility] Vital Signs Vital Name Observation Time Observation Value Comments Source Systolic blood 2020-11-13 19:18:00 116 mm[Hg] Univer sity of pressure [facility] Diastolic blood 2020-11-13 19:18:00 71 mm[Hg] Unive rsity [facility] Heart rate 2020-11-13 19:18:00 97 /min [facility] Body temperature 2020-11-13 19:18:00 37.22 Christel [facility] Respiratory rate 2020-11-13 19:18:00 16 /min [facility] Body height 2020-11-13 19:18:00 157.5 cm [facility] Body weight 2020-11-13 19:18:00 69.174 kg [facility] BMI 2020-11-13 19:18:00 27.89 kg/m2 [facility] Procedures Procedure Date / Time Performed Performing Clinician Sourc e POCT URINALYSIS W/O 2020-11-13 19:09:00 Milagro Varela [facility] SPECIFIC GRAVITY [facility] POCT TEST 2020-11-13 19:08:00 Milagro Varela [facility] CONSENT/REFUSAL FOR 2020-11-13 18:36:33 Doctor Unassigned, No Un [facility] DIAGNOSIS AND Name [facility] TREATMENT Plan of Care Planned Activity Planned Date Details Comments Source Future Scheduled 2022-02-13 DTaP,Tdap,and Td Univers ity of Test 00:00:00 Vaccines (5 - Td) [facility] [code = Branch DTaP,Tdap,and Td Vaccines (5 - Td)] Future Scheduled 2022-02-13 DTaP,Tdap,and Td Univers ity of Test 00:00:00 Vaccines (5 - Td) [place] [facility] carl [code = Branch DTaP,Tdap,and Td Vaccines (5 - Td)] Future Scheduled 2022-02-13 DTaP,Tdap,and Td Univers ity of Test 00:00:00 Vaccines (7 - Td) [facility] carl [code = Branch DTaP,Tdap,and Td Vaccines (7 - Td)] Future Scheduled 2021-11-13 Screening for University of Test 00:00:00 Chlamydia [place] [facility] trachomatis Branch (procedure) [code = 068905089] Future Scheduled 2021-11-13 Depression screening Uni versity of Test 00:00:00 (procedure) [code = [facility] dical 204294703] Branch Future Scheduled 2021-11-13 MENINGOCOCCAL B Postponed from Univer sity of Test 00:00:00 VACCINES (1 of 2 - 2010 [place] [facility] ical Risk Bexsero 2-dose ( or Branch series) [code = ) MENINGOCOCCAL B VACCINES (1 of 2 - Risk Bexsero 2-dose series)] Future Scheduled 2021-11-13 Screening for University of Test 00:00:00 Chlamydia [place] [facility] trachomatis Branch (procedure) [code = 414560607] Future Scheduled 2021-11-13 Depression screening Uni versity of Test 00:00:00 (procedure) [code = [place] dical 492717824] Branch Future Scheduled 2021-11-13 MENINGOCOCCAL B Postponed [...] [code = 11/13/2020, [place] [facility] [place] 30691-1] Expires: Branch 11/13/2021 Future Scheduled 2018 Hepatitis C University of Test 00:00:00 screening [place] [facility] (procedure) [code = Branch 234613358] Future Scheduled 2018 Hepatitis C University of Test 00:00:00 screening [place] [facility] (procedure) [code = Branch 349965584] Future Scheduled 2018 Hepatitis C University of Test 00:00:00 screening [place] [facility] (procedure) [code = Branch 133836970] Future Scheduled 2017-05-27 Well child visit Univers ity of Test 00:00:00 (procedure) [code = [facility] dical 390159212] Branch Future Scheduled 2016 SARS-CoV-2 University of Test 00:00:00 (COVID-19) Vaccine [place] [facility] ical (1) [code = Branch SARS-CoV-2 (COVID-19) Vaccine (1)] Future Scheduled 2016 SARS-CoV-2 University of Test 00:00:00 (COVID-19) Vaccine [place] [facility] (1) [code = Branch SARS-CoV-2 (COVID-19) Vaccine (1)] Future Scheduled 2016 Screening for University of Test 00:00:00 Chlamydia [place] [facility] trachomatis Branch (procedure) [code = 978404492] Future Scheduled 2016 SARS-CoV-2 University of Test 00:00:00 (COVID-19) Vaccine [place] [facility] (1) [code = Branch SARS-CoV-2 (COVID-19) Vaccine (1)] Future Scheduled 2012 Depression screening Uni versity of Test 00:00:00 (procedure) [code = [place] dical 077405389] Branch Future Scheduled 2010 MENINGOCOCCAL B Universi ty of Test 00:00:00 VACCINES (1 of 2 - [place] [facility] ical Risk Bexsero 2-dose Branch series) [code = MENINGOCOCCAL B VACCINES (1 of 2 - Risk Bexsero 2-dose series)] Future Scheduled WORKUP, Ordered: Univers ity of Test BLOOD BANK [code = 11/13/2020 [place] [facility] ical 3113] Branch Future Scheduled CBC WITH DIFF [code Univ ersity of Test = 06856-5] [facility] Future Scheduled GC & CHLAMYDIA Universit y of Test AMPLIFIED ASSAY [place] [facility] [code = 19472-2] Branch Future Scheduled HEPATITIS B SURFACE Univ ersity of Test ANTIGEN [code = [place] [facility] 52036-1] Branch Future Scheduled HIV 1/2 AG-AB WITH Unive rsity of Test REFLEX [code = [facility] 70037-6] Branch Future Scheduled RUBELLA SCREEN Universit y of Test (MARTIN) IGG [code = [place] dical 93320-4] Branch Future Scheduled GALV ONLY - SYPHILIS Uni versity of Test IGG/IGM [code = [place] [facility] 16403-6] Branch Future Scheduled URINE CULTURE [code Univ ersity of Test = 630-4] [facility] Future Scheduled THYROID STIMULATING Univ ersity of Test HORMONE [code = [place] [facility] 02654-1] Branch Future Scheduled GLUCOSE 1 HOUR POST Univ ersity of Test PRANDIAL [code = [place] [facility] 63464-4] Branch Future Scheduled POCT URINALYSIS W/O 20 Occurrences Un iversity of Test SPECIFIC GRAVITY starting [place] [facility] [code = 69703] 11/13/2020 until Branch 11/13/2021 Encounters Start End Encounter Admission Attending Care Care Encounter Source Date/Time Date/Time Type Type Clinicians Facility Department ID 2021-02-03 2021-02-03 Routine REINALDO Varela [id number] 12:45:45 13:49:12 Milagro Estevez FAITH DOCTOR [id number] Visit REGIONAL [id number] MATERNAL [id number] & CHILD 107 [facility] 2021-01-31 2021-01-31 Refill REINALDO Varela [id number] 00:00:00 00:00:00 Milagro Estevez FAITH DOCTOR [id number] REGIONAL [id number] MATERNAL [id number] & CHILD 107 [facility] 2021-01-31 2021-01-31 RefREINALDO Hernandez [id number] 00:00:00 00:00:00 Roshunda R FAITH DOCTOR [id number] REGIONAL [id number] MATERNAL [id number] & CHILD 107 [facility] 2021-01-16 2021-01-16 [facility] [id number] 00:00:00 00:00:00 Harjit R FAITH DOCTOR [id number] REGIONAL [id number] MATERNAL [id number] & CHILD 107 [facility] 2021-01-06 2021-01-06 [facility] [id number] 12:52:07 13:11:46 Milagro Herb FAITH DOCTOR [id number] Visit [facility] [id number] MATERNAL [id number] & CHILD 107 [facility] 2021-01-01 2021-01-01 [facility], [facility] [id number] 13:58:50 14:39:43 Visit [facility] FAITH DOCTOR [id number] [facility] [id number] MATERNAL [id number] & CHILD 125 [facility] Results Test Description Test Time Test Comments [...] code = 3257) [facility] - [id number] 19:08:00 Test Item Value Reference Range Interpretation Comments POCT PREG (test code = 1605) Positive On board controls acceptable with C Yes Line (test code = 3574) POCT PREG LOT # (test code = 3575) POCT PREG TEST DATE (test code = 3576) [facility]
[2021-02-06 00:47] LABS: Urine Blood 3+ (Negative); Urine Glucose Negative (Negative); Urine Protein 3+ (Negative); Urine Specific Gravity 1.025 (1.005-1.030)
[2021-02-06 01:17] LABS: Urine Specific Gravity/Preg 1.025 (1.005-1.030)
[2021-02-06 01:23] LABS: Absolute Lymphocytes (CBC) 0.7 K/uL (0.7-4.9); Basophils % 0.3 % (0-1.3); Hematocrit 30.5 % (36.0-45.0); MPV 7.2 fL (7.6-11.3); RBC Red Blood Cell Count 3.76 M/uL (3.86-4.86)
[2021-02-06 01:26] LABS: Urine Bacteria 20-50 /HPF (<20); Urine Mucus 2+ /HPF (NONE SEEN); Urine Yeast FEW (NONE SEEN)
[2021-02-06] MEDS ORDERED: ACETAMINOPHEN 500 MG TAB ONE (01:33)
[2021-02-06] MEDS ORDERED: CEFTRIAXONE/SWI 1gm 1 GM/10 ML SYR ONE (01:34)
[2021-02-06] MEDS ORDERED: NA CHLORIDE 0.9% 1,000 ML ONE (01:34)
[2021-02-06 01:42] LABS: ALT/SGPT 11 U/L (12-78); AST/SGOT 9 U/L (15-37); Albumin 3.5 g/dL (3.4-5.0); Alkaline Phosphatase 55 U/L (45-117); BUN Blood Urea Nitrogen 8 mg/dL (7-18); Bicarbonate 23 mmol/L (21-32); Bilirubin Direct < 0.1 mg/dL (0-0.2); Bilirubin Total 0.2 mg/dL (0.2-1.0); Glucose Level 105 mg/dL (74-106); Lipase 58 U/L (73-393); Potassium 3.5 mmol/L (3.5-5.1); Protein, Total 7.7 g/dL (6.4-8.2); Sodium Level 137 mmol/L (136-145)
[2021-02-06] MEDS ORDERED: ONDANSETRON 4 MG/2 ML VIAL ONE (01:44)
--- NOTE | 2021-02-06 02:28 | ER ---
Nurse's Notes [facility] Name: Anil Barney Age: 20 yrs Sex: Female : 2000 Arrival Date: 02/05/2021 Time: 23:55 Bed 5 Private MD: Diagnosis: Acute cystitis-with right pyelonephritis Presentation: 02/06 00:09 Chief complaint: Patient states: R flank pain rad to RUQ x 2 - 3 days, worse today. C/O ca1 N/V/constipation. 18 wks. Coronavirus screen: Client denies travel out of the [place] in the last 14 days. nausea, vomiting. Client presents with at least one sign or symptom that may indicate coronavirus-19. Standard/surgical mask placed on the client. Provider contacted for isolation considerations. Ebola Screen: Patient negative for fever greater than or equal to 101.5 degrees Fahrenheit, and additional compatible Ebola Virus Disease symptoms Patient denies exposure to infectious person. Patient denies travel to an Ebola-affected area in the 21 days before illness onset. No symptoms or risks identified at this time. Initial Sepsis Screen: Does the patient meet any 2 criteria? No. Patient's initial sepsis screen is negative. Does the patient have a suspected source of infection? No. Patient's initial sepsis screen is negative. Risk Assessment: Do you want to hurt yourself or someone else? Patient reports no desire to harm self or others. Onset of symptoms was February 06, 2021. 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 - Social history:: Smoking status: Patient denies any tobacco usage or history of. - Family history:: not pertinent. Screenin:00 Abuse screen: Denies threats or abuse. Nutritional screening: No deficits noted. jb4 Tuberculosis screening: No symptoms or risk factors identified. Fall Risk None identified. Assessment: 01:00 General: Appears in no apparent distress. uncomfortable, Behavior is calm, cooperative. jb4 Pain: Complains of pain in right mid back Pain radiates to right lower quadrant Pain currently is 10 out of 10 on a pain scale. Neuro: Level of Consciousness is awake, alert, obeys commands, Oriented to person, place, time, situation. Cardiovascular: Patient's skin is warm and dry. Respiratory: Airway is patent Respiratory effort is even, unlabored, Respiratory pattern is regular, symmetrical. GI: No signs and/or symptoms were reported involving the gastrointestinal system. : No signs and/or symptoms were reported regarding the genitourinary system. EENT: No signs and/or symptoms were reported regarding the EENT system. Derm: Skin is intact, Skin is pink, warm \T\ dry. Musculoskeletal: Circulation, motion, and sensation intact. Range of motion: intact in all extremities. 02:46 Reassessment: Patient appears in no apparent distress at this time. Patient and/or jb4 family updated on plan of care and expected duration. Pain level reassessed. Patient is alert, oriented x 3, equal unlabored respirations, skin warm/dry/pink. Vital Signs: 00:09 BP 109 / 54; Pulse 99; Resp 18 S; Temp 97.4(TE); Pulse Ox 100% on R/A; Weight 68.04 kg ca1 (R); Height 5 ft. 2 in. (157.48 cm) (R); Pain 10/10; 02:30 BP 96 / 55; Pulse 83; Resp 16; Pulse Ox 98% on R/A; jb4 00:09 Body Mass Index 27.44 (68.04 kg, 157.48 cm) ca1 ED Course: 02/05 23:55 Patient arrived in ED. bp1 02/06 00:11 Triage completed. ca1 00:11 Arm band placed on right wrist. ca1 00:43 Tanmay Bean MD is Attending Physician. ma2 00:44 Dhiraj Johnston RN is Primary Nurse. jb4 00:58 Inserted saline lock: 20 gauge in right antecubital area, using aseptic technique. oe Blood collected. 01:00 Patient has correct armband on for positive identification. Bed in low position. Call jb4 light in reach. Side rails up X 1. Pulse ox on. NIBP on. 02:27 Lex Berman MD is Referral Physician. ma2 02:30 No provider procedures requiring assistance completed. IV discontinued, intact, jb4 bleeding controlled, No redness/swelling at site. Pressure dressing applied. Administered Medications: 01:25 Drug: Tylenol 1000 mg Route: PO; jb4 02:38 Follow up: Response: No adverse reaction; Marked relief of symptoms; Pain is decreased jb4 01:25 Drug: Rocephin (cefTRIAXone) 1 grams Route: IV; Rate: calculated rate; Site: right jb4 antecubital; 01:30 Follow up: Response: No adverse reaction; IV Status: Completed infusion jb4 01:30 Drug: NS 0.9% 1000 ml Route: IV; Rate: 1 bolus; Site: right antecubital; jb4 02:15 Follow up: Response: No adverse reaction; IV Status: Completed infusion; IV Intake: jb4 1000ml 01:30 Drug: Zofran (Ondansetron) 4 mg Route: IVP; Site: right antecubital; jb4 02:37 Follow up: Response: No adverse reaction; Marked relief of symptoms; Nausea is decreasedjb4 Intake: 02:15 IV: 1000ml; Total: 1000ml. jb4 Outcome: 02:28 Discharge ordered by . ma2 02:30 Discharged to home ambulatory, with family. jb4 02:30 Condition: stable 02:30 Discharge instructions given to patient, Instructed on discharge instructions, follow up and referral plans. medication usage, Demonstrated understanding of instructions, follow-up care, medications, Prescriptions given X 1. 02:48 Patient left the ED. jb4 Addendum: 02/11/2021 07:59 Addendum: Culture Results: Positive urine culture. No further action required. Bacteria s s sensitive to prescribed antibiotic. Signatures: Angeles Silveira RN RN Dhiraj Johnston RN RN jb4 Henry Nice Mohammad, MD MD ma2 Mahi Geronimo RN JOSEPHINE [facility] Litzy Mejia
--- NOTE | 2021-02-06 02:28 | EDPHYS ---
Physician Documentation [facility] Name: Anil Barney Age: 20 yrs Sex: Female : 2000 Arrival Date: 02/05/2021 Time: 23:55 Bed 5 Private MD: ED Physician Tanmay Bean HPI: 02/06 01:08 This 20 yrs old Female presents to ER via Ambulatory with complaints of Flank ma2 Pain. 01:08 The patient complains of pain in the right mid back. Associated signs and symptoms: ma2 Pertinent negatives: dysuria, urinary frequency, hematuria, nausea. Severity of pain: At its worst the pain was mild in the emergency department the pain is unchanged. The patient has not experienced similar symptoms in the past. 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 - Social history:: Smoking status: Patient denies any tobacco usage or history of. - Family history:: not pertinent. ROS: 01:08 Constitutional: Negative for fever, chills, and weight loss. ma2 01:08 All other systems are negative. Exam: 01:08 Constitutional: This is a well developed, well nourished patient who is awake, alert, ma2 and in no acute distress. Head/Face: Normocephalic, atraumatic. Eyes: Pupils equal round and reactive to light, extra-ocular motions intact. Lids and lashes normal. Conjunctiva and sclera are non-icteric and not injected. Cornea within normal limits. Periorbital areas with no swelling, redness, or edema. ENT: Nares patent. No nasal discharge, no septal abnormalities noted. Tympanic membranes are normal and external auditory canals are clear. Oropharynx with no redness, swelling, or masses, exudates, or evidence of obstruction, uvula midline. Mucous membranes moist. Neck: Trachea midline, no thyromegaly or masses palpated, and no cervical lymphadenopathy. Supple, full range of motion without nuchal rigidity, or vertebral point tenderness. No Meningismus. Chest/axilla: Normal chest wall appearance and motion. Nontender with no deformity. No lesions are appreciated. Cardiovascular: Regular rate and rhythm with a normal S1 and S2. No gallops, murmurs, or rubs. Normal PMI, no JVD. No pulse deficits. Respiratory: Lungs have equal breath sounds bilaterally, clear to auscultation and percussion. No rales, rhonchi or wheezes noted. No increased work of breathing, no retractions or nasal flaring. Abdomen/GI: Soft, non-tender, with normal bowel sounds. No distension or tympany. No guarding or rebound. No evidence of tenderness throughout. Skin: Warm, dry with normal turgor. Normal color with no rashes, no lesions, and no evidence of cellulitis. MS/ Extremity: Pulses equal, no cyanosis. Neurovascular intact. Full, normal range of motion. Neuro: Awake and alert, GCS 15, oriented to person, place, time, and situation. Cranial nerves II-XII grossly intact. Motor strength 5/5 in all extremities. Sensory grossly intact. Cerebellar exam normal. Normal gait. Vital Signs: 00:09 BP 109 / 54; Pulse 99; Resp 18 S; Temp 97.4(TE); Pulse Ox 100% on R/A; Weight 68.04 kg ca1 (R); Height 5 ft. 2 in. (157.48 cm) (R); Pain 10/10; 02:30 BP 96 / 55; Pulse 83; Resp 16; Pulse Ox 98% on R/A; jb4 00:09 Body Mass Index 27.44 (68.04 kg, 157.48 cm) ca1 MDM: 00:45 Patient medically screened. ma2 01:08 Differential diagnosis: pyelonephritis, UTI. Data reviewed: vital signs, nurses notes. ma2 Counseling: I had a detailed discussion with the patient and/or guardian regarding: the historical points, exam findings, and any diagnostic results supporting the discharge/admit diagnosis, the presence of at least one elevated blood pressure reading (>120/80) during this emergency department visit, the need for outpatient follow up. 02:27 Response to treatment: the patient's symptoms have resolved after treatment. ma2 02/06 00:43 Order name: Basic Metabolic Panel ma2 02/06 00:43 Order name: CBC with Diff; Complete Time: 01:42 ma2 02/06 00:43 Order name: Hepatic Function ma2 02/06 00:43 Order name: Lipase ma2 02/06 00:46 Order name: Urine Dipstick-Ancillary; Complete Time: 01:42 EDMS 02/06 00:50 Order name: Urine Culture 1 02/06 00:43 Order name: IV Saline Lock; Complete Time: 01:05 wi2 02/06 00:50 Order name: Urine Microscopic Only; Complete Time: 01:42 tl1 02/06 00:52 Order name: Urine --Ancillary (enter results) 1 02/06 00:53 Order name: Urine --Ancillary; Complete Time: 01:42 EDMS 02/06 00:43 Order name: Labs collected and sent; Complete Time: 01:05 wi2 02/06 00:43 Order name: Urine Dipstick-Ancillary (obtain specimen); Complete Time: 01:05 wi2 02/06 00:52 Order name: Urine Test (obtain specimen); Complete Time: 00:52 tl1 Administered Medications: 01:25 Drug: Tylenol 1000 mg Route: PO; jb4 02:38 Follow up: Response: No adverse reaction; Marked relief of symptoms; Pain is decreased jb4 01:25 Drug: Rocephin (cefTRIAXone) 1 grams Route: IV; Rate: calculated rate; Site: right [facility] antecubital; 01:30 Follow up: Response: No adverse reaction; IV Status: Completed infusion jb4 01:30 Drug: NS 0.9% 1000 ml Route: IV; Rate: 1 bolus; Site: right antecubital; jb4 02:15 Follow up: Response: No adverse reaction; IV Status: Completed infusion; IV Intake: jb4 1000ml 01:30 Drug: Zofran (Ondansetron) 4 mg Route: IVP; Site: right antecubital; jb4 02:37 Follow up: Response: No adverse reaction; Marked relief of symptoms; Nausea is decreasedjb4 Disposition Summary: 02/06/21 02:28 Discharge Ordered Location: Home ma2 Condition: Stable ma2 Diagnosis - Acute cystitis - with right pyelonephritis ma2 Followup: ma2 - With: Private Physician - When: Tomorrow - Reason: Continuance of care Followup: ma2 - With: Lex Berman MD - When: Tomorrow - Reason: Continuance of care Discharge Instructions: - Discharge Summary Sheet ma2 - Urinary Tract Infection, Adult, [id number] ma2 Forms: - Medication Reconciliation Form ma2 - Thank You Letter ma2 - Work release form jb4 - Antibiotic Education ma2 - Prescription Opioid Use ma2 Prescriptions: - Augmentin 875-125 mg Oral Tablet - take 1 tablet by ORAL route every 12 hours for 10 days; 20 tablet; Refills: 0, ma2 Product Selection Permitted Signatures: Dispatcher [employer] EDMS Ailyn Mckeon, RN RN tl1 Dhiraj Johnston RN RN jb4 Tanmay Bean MD MD ma2 Mahi Geronimo RN RN ca1
[2021-02-06 05:13] VITALS: TEMP 97.4
[2021-02-06 05:15] VITALS: BP 96/55; O2SAT 98
== END 2021-02-06 02:48 | disposition home or self-care (01) ==
LOC: ER 23:52
DX: N10 Acute pyelonephritis (principal); N30.00 Acute cystitis without hematuria
CPT/HCPCS: 96361; 87088; 85025; 87086; 80048; 36415; 81025; 80076; 87077; 87186; 83690; 96375; 96374; 99284; J0696; J7030; J2405; 81003; 81015

== ENCOUNTER 2024-04-13 18:34 | Emergency (ER) | payer SELFPAY, OTHER ==
--- OUTSIDE RECORDS SUMMARY | 2024-04-13 18:39 | XMS REPORT | Continuity of Care Document ---
Author Name Unknown Address [address] [facility] [address]. [address] th[address] Address [address] [facility] 1 [address] [place] [address] Care Team Providers Care Highway Engineering Technician Name Role Phone JONES CHRISTIE Primary Care Physician Unavailab GABI Harris Attending Clinician Unavail able Karena Lee MD Attending Clinician [phone] EVELIA JESUS Attending Clinician Unavailable Evelia Short Attending Clinician [phone] Tamra Cheatham PA-C Attending Clinician [phone] Unknown, Attending Attending Clinician Unavailab TAMRA Gonzalez Attending Clinician Unavailable JONES CHRISTIE Attending Clinician Unavailable KARENA LEE Attending Clinician Unavailable Doctor Unassigned, [place] Attending Clinician U navailable Lab, Ang - Db Attending Clinician Unavailable JHONNY DOSS Attending Clinician Unavailable Lyla Hyde Attending Clinician [phone] Jhonny Doss MD Attending Clinician [phone] Maurizio RIZZO Attending Clinician Unavailable Maurizio Goode Attending Clinician [phone] MICHAEL PINEDA Attending Clinician Unavailable Vanessa Tse Attending Clinician [phone] Michael Pineda MD Attending Clinician [phone] Nurse, [facility] Attending Clinician Un available Ebrahim HEAD OF BIOLOGY, Moshe Attending Clinician [phone] EBRAHIMOSHE Zamora Attending Clinician Unavailable Brandon CNP, Gabi Yarbrough Attending Clinician + HARJIT BROWER Attending Clinician Unavailab qiana Brower HEAD OF BIOLOGY, Harjit Torres Attending Clinician + [phone] Avery HEAD OF BIOLOGYMilagro Vásquez Attending Clinician [phone] MILAGRO WILSON Attending Clinician Unavaildarryl e Visit, [facility] Nurse Attending Clinician ISIDRO Hansen Attending Clinician Unavailabl e Naz Kemp DO Attending Clinician [phone] Isidro White MD Attending Clinician [phone] Sarah Vinson MD Attending Clinician [phone] Humberto REEVES, Kayla Attending Clinician [phone] Radha Mcintosh MD Attending Clinician [phone] Ultrasound, [facility] Attending Clinician Unavailtalya Culver MD, Alyx Zamora Attending Clinician [phone], [facility] Attending Clinician Unavailab qiana Combs MD, Thomas Attending Clinician + Lab, [facility] Attending Clinician [facility] Schwartz Attending Clinician + MICHAEL PINEDA Admitting Clinician Unavailable Michael Pineda MD Admitting Clinician [phone] ISIDRO WHITE Admitting Clinician UnavailIsidro Silverio MD Admitting Clinician [phone] Payers Payer Name Policy Type Policy Number Effective Date Expirati on Date Source [place] [id number] 2020 00:00:00 [facility] [id number] 2021 00:00:00 MEDICAID PENDING PENDING 2020 00:00:00 [facility] [id number] 2013 00:00:00 Problems Condition Name Condition Details Condition Category Status Onset Date Resolution Date Last Treatment Date Treating Clinician Comments Source Symptomati c cholelithi asis Symptomati c cholelithi asis Disease Active 7- 00:00: 00 [facility] Well woman exam Well woman exam Disease Active 2-08 00:00: 00 [facility] Over weight Over weight Disease Active 2-08 00:00: 00 [facility] History of 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 coronaviru s disease (COVID-19) History of 2019 novel coronaviru s disease (COVID-19) Disease Active 2020-07 2-16 00:00: 00 [facility] Anemia of mother in , antepartum Anemia of mother in , antepartum Disease Active 9- 00:00: 00 [facility] History of thyroid disorder History of thyroid disorder Disease Active 6- 00:00: 00 [facility] Allergies, Adverse Reactions, Alerts Allergy Name Allergy Type Status Severity Reaction(s) Onset Date Inactive Date Treating Clinician Comments Source NO KNOWN ALLERGIE S Drug Class Active [facility] Social History Social Habit Start Date Stop Date Quantity Comments Source History of tobacco use Passive smoker [facility] Alcohol intake 2022-12-10 00:00:00 2022-12-10 00:00:00 Current non-drinker of alcohol (finding) [facility] Alcohol Comment 2022-07-06 00:00:00 2022-07-06 00:00:00 social [facility] Exposure to SARS-CoV-2 (event) 2022-06-20 00:00:00 2022-06-30 08:44:00 Not sure [facility] History of Social function 2022-06-30 00:00:00 2022-06-30 00:00:00 [facility] Tobacco use and exposure 2022-01-24 00:00:00 2022-01-24 00:00:00 Smokeless tobacco non-user [facility] Tobacco Comment 2022-01-24 00:00:00 2022-01-24 00:00:00 last vaped last week [facility] Sex Assigned At 2000 00:00:00 2000 00:00:00 [facility] Smoking Status Start Date Stop Date Source Occasional tobacco smoker 2022-01-24 00:00:00 [facility] Ex-smoker 2020-11-13 00:00:00 2020-11-13 00:00:00 [facility] Medications Ordered Medication Name Filled Medication Name Start Date Stop Date Current Medication? Ordering Clinician Indication Dosage Frequency Signature (SIG) Comments Components Source triamcinolo ne acetonide 0.1 % cream 12-10 00:00: 00 Yes [id number] Apply to area(s) 2 (two) times daily. [facility] famotidine 40 mg tablet 12-09 00:00: 00 Yes [id number] 40mg Take 1 tablet by mouth at bedtime. [facility] omeprazole 40 mg capsule 12-09 00:00: 00 Yes [id number] 40mg Take 1 capsule by mouth every morning. [facility] levonorgest rel-ethinyl estradiol (SRONYX) 0.1-20 mg-mcg per tablet 2021-07 00:00: 00 Yes [id number] 1{tbl} Take 1 tablet by mouth in the morning. [facility] levonorgest rel-ethinyl estradiol (SRONYX) 0.1-20 mg-mcg per tablet 12-18 00:00: 00 07-06 00:00 :00 No [id number] 1{tbl} Take 1 tablet by mouth daily. [facility] foLIC acid 1 mg tablet 2020-07 00:00: 00 03-12 00:00 :00 No [id number] 1mg Take 1 tablet by mouth daily. [facility] ferrous sulfate 325 mg (65 mg iron) tablet 2020-07 00:00: 00 03-12 00:00 :00 No [id number] 325mg Take 1 tablet by mouth 3 (three) times daily with meals. [facility] vitamin w/FA tablet 2020-07 00:00: 00 03-12 00:00 :00 No [id number] 1{tbl} Take 1 tablet by mouth daily. [facility] docusate calcium 240 mg capsule 2020-07 00:00: 00 03-12 00:00 :00 No [id number] 240mg Take 1 capsule by mouth once daily as needed for Constipati on. [facility] vitamin w/FA tablet 2020-07 00:00: 00 03-12 00:00 :00 No [id number] 1{tbl} Take 1 tablet by mouth daily. [facility] ibuprofen 600 mg tablet 2020-07 00:00: 00 01-24 00:00 :00 No [id number] 600mg Take 1 tablet by mouth every 6 (six) hours as needed (Pain). Take with food or milk. [facility] ascorbic acid, vitamin C, 500 mg tablet 04-01 00:00: 00 03-12 00:00 :00 No [id number] 500mg Take 1 tablet by mouth 3 (three) times daily. [facility] PNV 102-iron-fo late-dha (VITAFOL FE PLUS) 90 mg iron- 1 mg-200 mg Cap - 00:00: 00 07-06 00:00 :00 No [id number] 1{capsu le} Take 1 capsule by mouth daily. [facility] Immunizations Ordered Immunization Name Filled Immunization Name Date Status Comments Source TDAP 2021-04-22 00:00:00 Completed [facility] TDAP 2021-04-22 00:00:00 Completed [facility] TDAP 2021-04-22 00:00:00 Completed [facility] TDAP 2021-04-22 00:00:00 Completed [facility] TDAP 2021-04-22 00:00:00 Completed [facility] TDAP 2021-04-22 00:00:00 Completed [facility] TDAP 2021-04-22 00:00:00 Completed [facility] Influenza Virus Vaccine Quad IM 3+ YRS 2016-05-27 00:00:00 Completed [facility] Influenza Virus Vaccine Quad IM 3+ YRS 2016-05-27 00:00:00 Completed [facility] Influenza Virus Vaccine Quad IM 3+ YRS 2016-05-27 00:00:00 Completed [facility] Influenza Virus Vaccine Quad IM 3+ YRS 2016-05-27 00:00:00 Completed [facility] Influenza Virus Vaccine Quad IM 3+ YRS 2016-05-27 00:00:00 Completed [facility] Influenza Virus Vaccine Quad IM 3+ YRS 2016-05-27 00:00:00 Completed [facility] Influenza Virus Vaccine Quad IM 3+ YRS 2016-05-27 00:00:00 Completed [facility] Influenza Virus Vaccine Quad Nasal 2015-05-07 00:00:00 Completed [facility] Influenza Virus Vaccine Quad Nasal 2015-05-07 00:00:00 Completed [facility] Influenza Virus Vaccine Quad Nasal 2015-05-07 00:00:00 Completed [facility] Influenza Virus Vaccine Quad Nasal 2015-05-07 00:00:00 Completed [facility] Influenza Virus Vaccine Quad Nasal 2015-05-07 00:00:00 Completed [facility] Influenza Virus Vaccine Quad Nasal 2015-05-07 00:00:00 Completed [facility] Influenza Virus Vaccine Quad Nasal 2015-05-07 00:00:00 Completed [facility] Influenza Virus Vaccine Quad Nasal 2014-05-01 00:00:00 Completed [facility] Influenza Virus Vaccine Quad Nasal 2014-05-01 00:00:00 Completed [facility] Influenza Virus Vaccine Quad Nasal 2014-05-01 00:00:00 Completed [facility] Influenza Virus Vaccine Quad Nasal 2014-05-01 00:00:00 Completed [facility] Influenza Virus Vaccine Quad Nasal 2014-05-01 00:00:00 Completed [facility] Influenza Virus Vaccine Quad Nasal 2014-05-01 00:00:00 Completed [facility] Influenza Virus Vaccine Quad Nasal 2014-05-01 00:00:00 Completed [facility] Influenza Virus Vaccine Nasal 2013-04-26 00:00:00 Completed [facility] Influenza Virus Vaccine Nasal 2013-04-26 00:00:00 Completed [facility] Influenza Virus Vaccine Nasal 2013-04-26 00:00:00 Completed [facility] Influenza Virus Vaccine Nasal 2013-04-26 00:00:00 Completed [facility] Influenza Virus Vaccine Nasal 2013-04-26 00:00:00 Completed [facility] Influenza Virus Vaccine Nasal 2013-04-26 00:00:00 Completed [facility] Influenza Virus Vaccine Nasal 2013-04-26 00:00:00 Completed [facility] Meningococcal Vaccine 2012-02-14 00:00:00 Completed [facility] TDAP 2012-02-14 00:00:00 Completed [facility] Meningococcal Vaccine 2012-02-14 00:00:00 Completed [facility] TDAP 2012-02-14 00:00:00 Completed [facility] Meningococcal Vaccine 2012-02-14 00:00:00 Completed [facility] TDAP 2012-02-14 00:00:00 Completed [facility] Meningococcal Vaccine 2012-02-14 00:00:00 Completed [facility] TDAP 2012-02-14 00:00:00 Completed [facility] Meningococcal Vaccine 2012-02-14 00:00:00 Completed [facility] TDAP 2012-02-14 00:00:00 Completed [facility] Meningococcal Vaccine 2012-02-14 00:00:00 Completed [facility] TDAP 2012-02-14 00:00:00 Completed [facility] Meningococcal Vaccine 2012-02-14 00:00:00 Completed [facility] TDAP 2012-02-14 00:00:00 Completed [facility] TDAP 2011-07-11 00:00:00 Completed [facility] TDAP 2011-07-11 00:00:00 Completed [facility] TDAP 2011-07-11 00:00:00 Completed [facility] TDAP 2011-07-11 00:00:00 Completed [facility] TDAP 2011-07-11 00:00:00 Completed [facility] TDAP 2011-07-11 00:00:00 Completed [facility] TDAP 2011-07-11 00:00:00 Completed [facility] Influenza Virus Vaccine Nasal 2011-05-11 00:00:00 Completed [facility] Influenza Virus Vaccine Nasal 2011-05-11 00:00:00 Completed [facility] Influenza Virus Vaccine Nasal 2011-05-11 00:00:00 Completed [facility] Influenza Virus Vaccine Nasal 2011-05-11 00:00:00 Completed [facility] Influenza Virus Vaccine Nasal 2011-05-11 00:00:00 Completed [facility] Influenza Virus Vaccine Nasal 2011-05-11 00:00:00 Completed [facility] Influenza Virus Vaccine Nasal 2011-05-11 00:00:00 Completed [facility] HPV 2010-11-10 00:00:00 Completed [facility] HPV 2010-11-10 00:00:00 Completed [facility] HPV 2010-11-10 00:00:00 Completed [facility] HPV 2010-11-10 00:00:00 Completed [facility] HPV 2010-11-10 00:00:00 Completed [facility] HPV 2010-11-10 00:00:00 Completed [facility] HPV 2010-11-10 00:00:00 Completed [facility] Influenza Virus Vaccine 2009-07-02 00:00:00 Completed [facility] Influenza Virus Vaccine 2009-07-02 00:00:00 Completed [facility] Influenza Virus Vaccine 2009-07-02 00:00:00 Completed [facility] Influenza Virus Vaccine 2009-07-02 00:00:00 Completed [facility] Influenza Virus Vaccine 2009-07-02 00:00:00 Completed [facility] Influenza Virus Vaccine 2009-07-02 00:00:00 Completed [facility] Influenza Virus Vaccine 2009-07-02 00:00:00 Completed [facility] Varicella (varivax)(chicken pox) 2006-12-20 00:00:00 Completed [facility] Varicella (varivax)(chicken pox) 2006-12-20 00:00:00 Completed [facility] Varicella (varivax)(chicken pox) 2006-12-20 00:00:00 Completed [facility] Varicella (varivax)(chicken pox) 2006-12-20 00:00:00 Completed [facility] Varicella (varivax)(chicken pox) 2006-12-20 00:00:00 Completed [facility] Varicella (varivax)(chicken pox) 2006-12-20 00:00:00 Completed [facility] Varicella (varivax)(chicken pox) 2006-12-20 00:00:00 Completed [facility] HEPATITIS A 2005-09-06 00:00:00 Completed [facility] HEPATITIS A 2005-09-06 00:00:00 Completed [facility] HEPATITIS A 2005-09-06 00:00:00 Completed [facility] HEPATITIS A 2005-09-06 00:00:00 Completed [facility] HEPATITIS A 2005-09-06 00:00:00 Completed [facility] HEPATITIS A 2005-09-06 00:00:00 Completed [facility] HEPATITIS A 2005-09-06 00:00:00 Completed [facility] HEPATITIS A 2005-03-03 00:00:00 Completed [facility] HEPATITIS A 2005-03-03 00:00:00 Completed [facility] HEPATITIS A 2005-03-03 00:00:00 Completed [facility] HEPATITIS A 2005-03-03 00:00:00 Completed [facility] HEPATITIS A 2005-03-03 00:00:00 Completed [facility] HEPATITIS A 2005-03-03 00:00:00 Completed [facility] HEPATITIS A 2005-03-03 00:00:00 Completed [facility] DTAP 2005-01-21 00:00:00 Completed [facility] MMR 2005-01-21 00:00:00 Completed [facility] Pneumococcal 7 Conjugate, PCV7 (Prevnar7) 2005-01-21 00:00:00 Completed [facility] Polio (IPV/OPV) 2005-01-21 00:00:00 Completed [facility] PPD (TB) 2005-01-21 00:00:00 Completed [facility] DTAP 2005-01-21 00:00:00 Completed [facility] MMR 2005-01-21 00:00:00 Completed [facility] Pneumococcal 7 Conjugate, PCV7 (Prevnar7) 2005-01-21 00:00:00 Completed [facility] Polio (IPV/OPV) 2005-01-21 00:00:00 Completed [facility] PPD (TB) 2005-01-21 00:00:00 Completed [facility] DTAP 2005-01-21 00:00:00 Completed [facility] MMR 2005-01-21 00:00:00 Completed [facility] Pneumococcal 7 Conjugate, PCV7 (Prevnar7) 2005-01-21 00:00:00 Completed [facility] Polio (IPV/OPV) 2005-01-21 00:00:00 Completed [facility] PPD (TB) 2005-01-21 00:00:00 Completed [facility] DTAP 2005-01-21 00:00:00 Completed [facility] MMR 2005-01-21 00:00:00 Completed [facility] Pneumococcal 7 Conjugate, PCV7 (Prevnar7) 2005-01-21 00:00:00 Completed [facility] Polio (IPV/OPV) 2005-01-21 00:00:00 Completed [facility] PPD (TB) 2005-01-21 00:00:00 Completed [facility] DTAP 2005-01-21 00:00:00 Completed [facility] MMR 2005-01-21 00:00:00 Completed [facility] Pneumococcal 7 Conjugate, PCV7 (Prevnar7) 2005-01-21 00:00:00 Completed [facility] Polio (IPV/OPV) 2005-01-21 00:00:00 Completed [facility] PPD (TB) 2005-01-21 00:00:00 Completed [facility] DTAP 2005-01-21 00:00:00 Completed [facility] MMR 2005-01-21 00:00:00 Completed [facility] Pneumococcal 7 Conjugate, PCV7 (Prevnar7) 2005-01-21 00:00:00 Completed [facility] Polio (IPV/OPV) 2005-01-21 00:00:00 Completed [facility] PPD (TB) 2005-01-21 00:00:00 Completed [facility] DTAP 2005-01-21 00:00:00 Completed [facility] MMR 2005-01-21 00:00:00 Completed [facility] Pneumococcal 7 Conjugate, PCV7 (Prevnar7) 2005-01-21 00:00:00 Completed [facility] Polio (IPV/OPV) 2005-01-21 00:00:00 Completed [facility] PPD (TB) 2005-01-21 00:00:00 Completed [facility] Pneumococcal 7 Conjugate, PCV7 (Prevnar7) 2002-07-09 00:00:00 Completed [facility] Pneumococcal 7 Conjugate, PCV7 (Prevnar7) 2002-07-09 00:00:00 Completed [facility] Pneumococcal 7 Conjugate, PCV7 (Prevnar7) 2002-07-09 00:00:00 Completed [facility] Pneumococcal 7 Conjugate, PCV7 (Prevnar7) 2002-07-09 00:00:00 Completed [facility] Pneumococcal 7 Conjugate, PCV7 (Prevnar7) 2002-07-09 00:00:00 Completed [facility] Pneumococcal 7 Conjugate, PCV7 (Prevnar7) 2002-07-09 00:00:00 Completed [facility] Pneumococcal 7 Conjugate, PCV7 (Prevnar7) 2002-07-09 00:00:00 Completed [facility] DTAP 2002-03-20 00:00:00 Completed [facility] Varicella (varivax)(chicken pox) 2002-03-20 00:00:00 Completed [facility] DTAP 2002-03-20 00:00:00 Completed [facility] Varicella (varivax)(chicken pox) 2002-03-20 00:00:00 Completed [facility] DTAP 2002-03-20 00:00:00 Completed [facility] Varicella (varivax)(chicken pox) 2002-03-20 00:00:00 Completed [facility] DTAP 2002-03-20 00:00:00 Completed [facility] Varicella (varivax)(chicken pox) 2002-03-20 00:00:00 Completed [facility] DTAP 2002-03-20 00:00:00 Completed [facility] Varicella (varivax)(chicken pox) 2002-03-20 00:00:00 Completed [facility] DTAP 2002-03-20 00:00:00 Completed [facility] Varicella (varivax)(chicken pox) 2002-03-20 00:00:00 Completed [facility] DTAP 2002-03-20 00:00:00 Completed [facility] Varicella (varivax)(chicken pox) 2002-03-20 00:00:00 Completed [facility] HIB 4 Dose Schedule 2001-12-19 00:00:00 Completed [facility] MMR 2001-12-19 00:00:00 Completed [facility] Polio (IPV/OPV) 2001-12-19 00:00:00 Completed [facility] PPD (TB) 2001-12-19 00:00:00 Completed [facility] HIB 4 Dose Schedule 2001-12-19 00:00:00 Completed [facility] MMR 2001-12-19 00:00:00 Completed [facility] Polio (IPV/OPV) 2001-12-19 00:00:00 Completed [facility] PPD (TB) 2001-12-19 00:00:00 Completed [facility] HIB 4 Dose Schedule 2001-12-19 00:00:00 Completed [facility] MMR 2001-12-19 00:00:00 Completed [facility] Polio (IPV/OPV) 2001-12-19 00:00:00 Completed [facility] PPD (TB) 2001-12-19 00:00:00 Completed [facility] HIB 4 Dose Schedule 2001-12-19 00:00:00 Completed [facility] MMR 2001-12-19 00:00:00 Completed [facility] Polio (IPV/OPV) 2001-12-19 00:00:00 Completed [facility] PPD (TB) 2001-12-19 00:00:00 Completed [facility] HIB 4 Dose Schedule 2001-12-19 00:00:00 Completed [facility] MMR 2001-12-19 00:00:00 Completed [facility] Polio (IPV/OPV) 2001-12-19 00:00:00 Completed [facility] PPD (TB) 2001-12-19 00:00:00 Completed [facility] HIB 4 Dose Schedule 2001-12-19 00:00:00 Completed [facility] MMR 2001-12-19 00:00:00 Completed [facility] Polio (IPV/OPV) 2001-12-19 00:00:00 Completed [facility] PPD (TB) 2001-12-19 00:00:00 Completed [facility] HIB 4 Dose Schedule 2001-12-19 00:00:00 Completed [facility] MMR 2001-12-19 00:00:00 Completed [facility] Polio (IPV/OPV) 2001-12-19 00:00:00 Completed [facility] PPD (TB) 2001-12-19 00:00:00 Completed [facility] Hep B, Adol or Pedi Dosage 2001-10-03 00:00:00 Completed [facility] Hep B, Adol or Pedi Dosage 2001-10-03 00:00:00 Completed [facility] Hep B, Adol or Pedi Dosage 2001-10-03 00:00:00 Completed [facility] Hep B, Adol or Pedi Dosage 2001-10-03 00:00:00 Completed [facility] Hep B, Adol or Pedi Dosage 2001-10-03 00:00:00 Completed [facility] Hep B, Adol or Pedi Dosage 2001-10-03 00:00:00 Completed [facility] Hep B, Adol or Pedi Dosage 2001-10-03 00:00:00 [facility] [place] DTAP 2001-08-02 00:00:00 Completed [facility] [place] HIB 4 Dose Schedule 2001-08-02 00:00:00 Completed [facility] [place] Pneumococcal 7 Conjugate, PCV7 (Prevnar7) 2001-08-02 00:00:00 Completed [facility] [place] DTAP 2001-08-02 00:00:00 Completed [facility] [place] HIB 4 Dose Schedule 2001-08-02 00:00:00 Completed [facility] [place] Pneumococcal 7 Conjugate, PCV7 (Prevnar7) 2001-08-02 00:00:00 Completed [facility] [place] DTAP 2001-08-02 00:00:00 Completed [facility] [place] HIB 4 Dose Schedule 2001-08-02 00:00:00 Completed [facility] [place] Pneumococcal 7 Conjugate, PCV7 (Prevnar7) 2001-08-02 00:00:00 Completed [facility] [place] DTAP 2001-08-02 00:00:00 Completed [facility] [place] HIB 4 Dose Schedule 2001-08-02 00:00:00 Completed [facility] [place] Pneumococcal 7 Conjugate, PCV7 (Prevnar7) 2001-08-02 00:00:00 Completed [facility] [place] DTAP 2001-08-02 00:00:00 Completed [facility] [place] HIB 4 Dose Schedule 2001-08-02 00:00:00 Completed [facility] [place] Pneumococcal 7 Conjugate, PCV7 (Prevnar7) 2001-08-02 00:00:00 Completed [facility] [place] DTAP 2001-08-02 00:00:00 Completed [facility] [place] HIB 4 Dose Schedule 2001-08-02 00:00:00 Completed [facility] [place] Pneumococcal 7 Conjugate, PCV7 (Prevnar7) 2001-08-02 00:00:00 Completed [facility] [place] DTAP 2001-08-02 00:00:00 Completed [facility] [place] HIB 4 Dose Schedule 2001-08-02 00:00:00 Completed [facility] [place] Pneumococcal 7 Conjugate, PCV7 (Prevnar7) 2001-08-02 00:00:00 Completed [facility] [place] DTAP 2001-05-10 00:00:00 Completed [facility] [place] HIB 4 Dose Schedule 2001-05-10 00:00:00 Completed [facility] [place] Hep B, Adol or Pedi Dosage 2001-05-10 00:00:00 Completed [facility] [place] Polio (IPV/OPV) 2001-05-10 00:00:00 Completed [facility] [place] DTAP 2001-05-10 00:00:00 Completed [facility] [place] HIB 4 Dose Schedule 2001-05-10 00:00:00 Completed [facility] [place] Hep B, Adol or Pedi Dosage 2001-05-10 00:00:00 Completed [facility] [place] Polio (IPV/OPV) 2001-05-10 00:00:00 Completed [facility] [place] DTAP 2001-05-10 00:00:00 Completed [facility] [place] HIB 4 Dose Schedule 2001-05-10 00:00:00 Completed [facility] [place] Hep B, Adol or Pedi Dosage 2001-05-10 00:00:00 Completed [facility] [place] Polio (IPV/OPV) 2001-05-10 00:00:00 Completed [facility] [place] DTAP 2001-05-10 00:00:00 Completed [facility] [place] HIB 4 Dose Schedule 2001-05-10 00:00:00 Completed [facility] [place] Hep B, Adol or Pedi Dosage 2001-05-10 00:00:00 Completed [facility] [place] Polio (IPV/OPV) 2001-05-10 00:00:00 Completed [facility] [place] DTAP 2001-05-10 00:00:00 Completed [facility] [place] HIB 4 Dose Schedule 2001-05-10 00:00:00 Completed [facility] [place] Hep B, Adol or Pedi Dosage 2001-05-10 00:00:00 Completed [facility] [place] Polio (IPV/OPV) 2001-05-10 00:00:00 Completed [facility] [place] DTAP 2001-05-10 00:00:00 Completed [facility] [place] HIB 4 Dose Schedule 2001-05-10 00:00:00 Completed [facility] [place] Hep B, Adol or Pedi Dosage 2001-05-10 00:00:00 Completed [facility] [place] Polio (IPV/OPV) 2001-05-10 00:00:00 Completed [facility] [place] DTAP 2001-05-10 00:00:00 Completed [facility] [place] HIB 4 Dose Schedule 2001-05-10 00:00:00 Completed [facility] [place] Hep B, Adol or Pedi Dosage 2001-05-10 00:00:00 Completed [facility] [place] Polio (IPV/OPV) 2001-05-10 00:00:00 Completed [facility] [place] DTAP 2001-02-14 00:00:00 Completed [facility] [place] HIB 4 Dose Schedule 2001-02-14 00:00:00 Completed [facility] [place] Pneumococcal 7 Conjugate, PCV7 (Prevnar7) 2001-02-14 00:00:00 Completed [facility] [place] Polio (IPV/OPV) 2001-02-14 00:00:00 Completed [facility] [place] DTAP 2001-02-14 00:00:00 Completed [facility] [place] HIB 4 Dose Schedule 2001-02-14 00:00:00 Completed [facility] [place] Pneumococcal 7 Conjugate, PCV7 (Prevnar7) 2001-02-14 00:00:00 Completed [facility] [place] Polio (IPV/OPV) 2001-02-14 00:00:00 Completed [facility] [place] DTAP 2001-02-14 00:00:00 Completed [facility] [place] HIB 4 Dose Schedule 2001-02-14 00:00:00 Completed [facility] [place] Pneumococcal 7 Conjugate, PCV7 (Prevnar7) 2001-02-14 00:00:00 Completed [facility] [place] Polio (IPV/OPV) 2001-02-14 00:00:00 Completed [facility] [place] DTAP 2001-02-14 00:00:00 Completed [facility] [place] HIB 4 Dose Schedule 2001-02-14 00:00:00 Completed [facility] [place] Pneumococcal 7 Conjugate, PCV7 (Prevnar7) 2001-02-14 00:00:00 Completed [facility] [place] Polio (IPV/OPV) 2001-02-14 00:00:00 Completed [facility] [place] DTAP 2001-02-14 00:00:00 Completed [facility] [place] HIB 4 Dose Schedule 2001-02-14 00:00:00 Completed [facility] [place] Pneumococcal 7 Conjugate, PCV7 (Prevnar7) 2001-02-14 00:00:00 Completed [facility] [place] Polio (IPV/OPV) 2001-02-14 00:00:00 Completed [facility] [place] DTAP 2001-02-14 00:00:00 Completed [facility] [place] HIB 4 Dose Schedule 2001-02-14 00:00:00 Completed [facility] [place] Pneumococcal 7 Conjugate, PCV7 (Prevnar7) 2001-02-14 00:00:00 Completed [facility] [place] Polio (IPV/OPV) 2001-02-14 00:00:00 Completed [facility] [place] DTAP 2001-02-14 00:00:00 Completed [facility] [place] HIB 4 Dose Schedule 2001-02-14 00:00:00 Completed [facility] [place] Pneumococcal 7 Conjugate, PCV7 (Prevnar7) 2001-02-14 00:00:00 Completed [facility] [place] Polio (IPV/OPV) 2001-02-14 00:00:00 Completed [facility] [place] Hep B, Adol or Pedi Dosage 2000 00:00:00 Completed [facility] [place] Hep B, Adol or Pedi Dosage 2000 00:00:00 Completed [facility] [place] Hep B, Adol or Pedi Dosage 2000 00:00:00 Completed [facility] [place] Hep B, Adol or Pedi Dosage 2000 00:00:00 Completed [facility] [place] Hep B, Adol or Pedi Dosage 2000 00:00:00 Completed [facility] [place] Hep B, Adol or Pedi Dosage 2000 00:00:00 Completed [facility] [place] Hep B, Adol or Pedi Dosage 2000 00:00:00 Completed [facility] [place] Influenza Virus Vaccine Nasal Unknown Completed [facility] [place] DTAP Unknown Completed [facility] [place] HIB 4 Dose Schedule Unknown Completed [facility] [place] HEPATITIS A Unknown Completed [facility] Hep B, Adol or Pedi Dosage Unknown Completed [facility] [place] HPV Unknown Completed [facility] [place] Influenza Virus Vaccine Unknown Completed [facility] [place] Meningococcal Vaccine Unknown Completed [facility] [place] MMR Unknown Completed [facility] [place] Pneumococcal 7 Conjugate, PCV7 (Prevnar7) Unknown Completed [facility] [place] Polio (IPV/OPV) Unknown Completed [facility] PPD (TB) Unknown Completed [facility] [place] Varicella (varivax)(chicken pox) Unknown Completed [facility] [place] Influenza Virus Vaccine Quad Nasal (Flumist) Unknown Completed [facility] [place] Influenza Virus Vaccine Quad IM 3+ YRS Unknown Completed [facility] [place] TDAP Unknown Completed [facility] [place] Influenza Virus Vaccine Nasal Unknown Completed [facility] [place] DTAP Unknown Completed [facility] [place] HIB 4 Dose Schedule Unknown Completed [facility] [place] HEPATITIS A Unknown Completed [facility] Hep B, Adol or Pedi Dosage Unknown Completed [facility] [place] HPV Unknown Completed [facility] [place] Influenza Virus Vaccine Unknown Completed [facility] [place] Meningococcal Vaccine Unknown Completed [facility] [place] MMR Unknown Completed [facility] [place] Pneumococcal 7 Conjugate, PCV7 (Prevnar7) Unknown Completed [facility] [place] Polio (IPV/OPV) Unknown Completed [facility] PPD (TB) Unknown Completed [facility] [place] Varicella (varivax)(chicken pox) Unknown Completed [facility] [place] Influenza Virus Vaccine Quad Nasal (Flumist) Unknown Completed [facility] [place] Influenza Virus Vaccine Quad IM 3+ YRS Unknown Completed [facility] [place] TDAP Unknown Completed [facility] [place] Influenza Virus Vaccine Nasal Unknown Completed [facility] [place] DTAP Unknown Completed [facility] [place] HIB 4 Dose Schedule Unknown Completed [facility] [place] HEPATITIS A Unknown Completed [facility] Hep B, Adol or Pedi Dosage Unknown Completed [facility] [place] HPV Unknown Completed [facility] [place] Influenza Virus Vaccine Unknown Completed [facility] [place] Meningococcal Vaccine Unknown Completed [facility] [place] MMR Unknown Completed [facility] [place] Pneumococcal 7 Conjugate, PCV7 (Prevnar7) Unknown Completed [facility] [place] Polio (IPV/OPV) Unknown Completed [facility] PPD (TB) Unknown Completed [facility] [place] Varicella (varivax)(chicken pox) Unknown Completed [facility] [place] Influenza Virus Vaccine Quad Nasal (Flumist) Unknown Completed [facility] [place] Influenza Virus Vaccine Quad IM 3+ YRS Unknown Completed [facility] [place] TDAP Unknown Completed [facility] [place] Influenza Virus Vaccine Nasal Unknown Completed [facility] [place] DTAP Unknown Completed [facility] [place] HIB 4 Dose Schedule Unknown Completed [facility] [place] HEPATITIS A Unknown Completed [facility] Hep B, Adol or Pedi Dosage Unknown Completed [facility] [place] HPV Unknown Completed [facility] [place] Influenza Virus Vaccine Unknown Completed [facility] [place] Meningococcal Vaccine Unknown Completed [facility] [place] MMR Unknown Completed [facility] [place] Pneumococcal 7 Conjugate, PCV7 (Prevnar7) Unknown Completed [facility] [place] Polio (IPV/OPV) Unknown Completed [facility] PPD (TB) Unknown Completed [facility] [place] Varicella (varivax)(chicken pox) Unknown Completed [facility] [place] Influenza Virus Vaccine Quad Nasal (Flumist) Unknown Completed [facility] [place] Influenza Virus Vaccine Quad IM 3+ YRS Unknown Completed [facility] [place] TDAP Unknown Completed [facility] [place] Influenza Virus Vaccine Nasal Unknown Completed [facility] [place] DTAP Unknown Completed [facility] [place] HIB 4 Dose Schedule Unknown Completed [facility] [place] HEPATITIS A Unknown Completed [facility] Hep B, Adol or Pedi Dosage Unknown Completed [facility] [place] HPV Unknown Completed [facility] [place] Influenza Virus Vaccine Unknown Completed [facility] [place] Meningococcal Vaccine Unknown Completed [facility] [place] MMR Unknown Completed [facility] [place] Pneumococcal 7 Conjugate, PCV7 (Prevnar7) Unknown Completed [facility] [place] Polio (IPV/OPV) Unknown Completed [facility] PPD (TB) Unknown Completed [facility] [place] Varicella (varivax)(chicken pox) Unknown Completed [facility] [place] Influenza Virus Vaccine Quad Nasal (Flumist) Unknown Completed [facility] [place] Influenza Virus Vaccine Quad IM 3+ YRS Unknown Completed [facility] [place] TDAP Unknown Completed [facility] [place] Influenza Virus Vaccine Nasal Unknown Completed [facility] [place] DTAP Unknown Completed [facility] [place] HIB 4 Dose Schedule Unknown Completed [facility] [place] [facility]ITIS A [facility], Adol or Pedi Dosage Unknown Completed [facility] [place] HPV Unknown Completed [facility] [place] Influenza Virus Vaccine Unknown Completed [facility] [place] Meningococcal Vaccine Unknown Completed [facility] [place] MMR Unknown Completed [facility] [place] Pneumococcal 7 Conjugate, PCV7 (Prevnar7) Unknown Completed [facility] [place] Polio (IPV/OPV) Unknown Completed [facility] PPD (TB) Unknown Completed [facility] [place] Varicella (varivax)(chicken pox) Unknown Completed [facility] [place] Influenza Virus Vaccine Quad Nasal (Flumist) Unknown Completed [facility] [place] Influenza Virus Vaccine Quad IM 3+ YRS Unknown Completed [facility] [place] TDAP Unknown Completed [facility] [place] Influenza Virus Vaccine Nasal Unknown Completed [facility] [place] DTAP Unknown Completed [facility] [place] HIB 4 Dose Schedule Unknown Completed [facility] [place] [facility]PATITIS A Unknown [facility], Adol or Pedi Dosage Unknown Completed [facility] [place] HPV Unknown Completed [facility] [place] Influenza Virus Vaccine Unknown Completed [facility] [place] Meningococcal Vaccine Unknown Completed [facility] MMR Unknown Completed [facility] [place] Pneumococcal 7 Conjugate, PCV7 (Prevnar7) Unknown Completed [facility] [place] Polio (IPV/OPV) Unknown Completed [facility] PPD (TB) Unknown Completed [facility] [place] Varicella (varivax)(chicken pox) Unknown Completed [facility] [place] Influenza Virus Vaccine Quad Nasal (Flumist) Unknown Completed [facility] [place] Influenza Virus Vaccine Quad IM 3+ YRS Unknown Completed [facility] [place] TDAP Unknown Completed [facility] [place] Influenza Virus Vaccine Nasal Unknown Completed [facility] [place] DTAP Unknown Completed [facility] [place] HIB 4 Dose Schedule Unknown Completed [facility] [place] HEPATITIS A Unknown Completed [facility] Hep B, Adol or Pedi Dosage Unknown Completed [facility] [place] HPV Unknown Completed [facility] [place] Influenza Virus Vaccine Unknown Completed [facility] [place] Meningococcal Vaccine Unknown Completed [facility] MMR Unknown Completed [facility] [place] Pneumococcal 7 Conjugate, PCV7 (Prevnar7) Unknown Completed [facility] [place] Polio (IPV/OPV) Unknown Completed [facility] PPD (TB) Unknown Completed [facility] [place] Varicella (varivax)(chicken pox) Unknown Completed [facility] [place] Influenza Virus Vaccine Quad Nasal (Flumist) Unknown Completed [facility] [place] Influenza Virus Vaccine Quad IM 3+ YRS Unknown Completed [facility] TDAP Unknown Completed [facility] [place] Influenza Virus Vaccine Nasal Unknown Completed [facility] [place] DTAP Unknown Completed [facility] [place] HIB 4 Dose Schedule Unknown Completed [facility] [place] HEPATITIS A Unknown Completed [facility] Hep B, Adol or Pedi Dosage Unknown Completed [facility] HPV Unknown Completed [facility] [place] Influenza Virus Vaccine Unknown Completed [facility] [place] Meningococcal Vaccine Unknown Completed [facility] MMR Unknown Completed [facility] Pneumococcal 7 Conjugate, PCV7 (Prevnar7) Unknown Completed [facility] [place] Polio (IPV/OPV) Unknown Completed [facility] PPD (TB) Unknown Completed [facility] TDAP Unknown Completed [facility] [place] Varicella (varivax)(chicken pox) Unknown Completed [facility] [place] Influenza Virus Vaccine Quad Nasal (Flumist) Unknown Completed [facility] [place] Influenza Virus Vaccine Quad IM 3+ YRS Unknown Completed [facility] [place] Influenza Virus Vaccine Nasal Unknown Completed [facility] [place] DTAP Unknown Completed [facility] HIB 4 Dose Schedule Unknown Completed [facility] [place] HEPATITIS A Unknown Completed [facility] Hep B, Adol or Pedi Dosage Unknown Completed [facility] [place] HPV Unknown Completed [facility] [place] Influenza Virus Vaccine Unknown Completed [facility] [place] Meningococcal Vaccine Unknown Completed [facility] [place] MMR Unknown Completed [facility] Pneumococcal 7 Conjugate, PCV7 (Prevnar7) Unknown Completed [facility] [place] Polio (IPV/OPV) Unknown Completed [facility] PPD (TB) Unknown Completed [facility] [place] TDAP Unknown Completed [facility] [place] Varicella (varivax)(chicken pox) Unknown Completed [facility] [place] Influenza Virus Vaccine Quad Nasal (Flumist) Unknown Completed [facility] [place] Influenza Virus Vaccine Quad IM 3+ YRS Unknown Completed [facility] [place] Influenza Virus Vaccine Nasal Unknown Completed [facility] [place] DTAP Unknown Completed [facility] [place] HIB 4 Dose Schedule Unknown Completed [facility] [place] HEPATITIS A Unknown Completed [facility] Hep B, Adol or Pedi Dosage Unknown Completed [facility] [place] HPV Unknown Completed [facility] [place] Influenza Virus Vaccine Unknown Completed [facility] [place] Meningococcal Vaccine Unknown Completed [facility] [place] MMR Unknown Completed [facility] [place] Pneumococcal 7 Conjugate, PCV7 (Prevnar7) Unknown Completed [facility] [place] Polio (IPV/OPV) Unknown Completed [facility] PPD (TB) Unknown Completed [facility] [place] TDAP Unknown Completed [facility] [place] Varicella (varivax)(chicken pox) Unknown Completed [facility] [place] Influenza Virus Vaccine Quad Nasal (Flumist) Unknown Completed [facility] [place] Influenza Virus Vaccine Quad IM 3+ YRS Unknown Completed [facility] [place] Influenza Virus Vaccine Nasal Unknown Completed [facility] [place] DTAP Unknown Completed [facility] [place] HIB 4 Dose Schedule Unknown Completed [facility] [place] HEPATITIS A Unknown Completed [facility] Hep B, Adol or Pedi Dosage Unknown Completed [facility] [place] HPV Unknown Completed [facility] [place] Influenza Virus Vaccine Unknown Completed [facility] [place] Meningococcal Vaccine Unknown Completed [facility] [place] MMR Unknown Completed [facility] [place] Pneumococcal 7 Conjugate, PCV7 (Prevnar7) Unknown Completed [facility] [place] Polio (IPV/OPV) Unknown Completed [facility] PPD (TB) Unknown Completed [facility] [place] TDAP Unknown Completed [facility] [place] Varicella (varivax)(chicken pox) Unknown Completed [facility] [place] Influenza Virus Vaccine Quad Nasal (Flumist) Unknown Completed [facility] [place] Influenza Virus Vaccine Quad IM 3+ YRS Unknown Completed [facility] [place] Vital Signs Vital Name Observation Time Observation Value Comments S ource Systolic blood pressure 2022-12-10 21:35:00 126 mm[Hg] [facility] Diastolic blood pressure 2022-12-10 21:35:00 81 mm[Hg] [facility] Body temperature 2022-12-10 21:35:00 36.28 Christel [facility] [place] Respiratory rate 2022-12-10 21:35:00 18 /min [facility] [place] Body height 2022-12-10 21:35:00 157.5 cm [facility] Body weight 2022-12-10 21:35:00 60.963 kg [facility] BMI 2022-12-10 21:35:00 24.58 kg/m2 [facility] Oxygen saturation in Arterial blood by Pulse oximetry 2022-12-10 21:35:00 98 /min [facility] Systolic blood pressure 2022-12-10 00:02:00 115 mm[Hg] [facility] Diastolic blood pressure 2022-12-10 00:02:00 67 mm[Hg] [facility] Heart rate 2022-12-10 00:02:00 123 /min [facility] Body temperature 2022-12-10 00:02:00 37.28 Christel [facility] [place] Respiratory rate 2022-12-10 00:02:00 20 /min [facility] [place] Body height 2022-12-10 00:02:00 157.5 cm [facility] Body weight 2022-12-10 00:02:00 60.464 kg [facility] BMI 2022-12-10 00:02:00 24.38 kg/m2 [facility] Oxygen saturation in Arterial blood by Pulse oximetry 2022-12-10 00:02:00 99 /min [facility] Systolic blood pressure 2022-07-06 15:31:00 108 mm[Hg] [facility] Diastolic blood pressure 2022-07-06 15:31:00 70 mm[Hg] [facility] Heart rate 2022-07-06 15:31:00 86 /min [facility] Body temperature 2022-07-06 15:31:00 36.78 Christel [facility] [place] Respiratory rate 2022-07-06 15:31:00 18 /min [facility] Body height 2022-07-06 15:31:00 157.5 cm [facility] [facility] Body weight 2022-07-06 15:31:00 64.864 kg [facility] BMI 2022-07-06 15:31:00 26.16 kg/m2 [facility] Systolic blood pressure 2022-06-30 14:56:00 106 mm[Hg] [facility] Diastolic blood pressure 2022-06-30 14:56:00 70 mm[Hg] [facility] Heart rate 2022-06-30 14:56:00 72 /min [facility] Body temperature 2022-06-30 14:56:00 36.83 Christel [facility] Body height 2022-06-30 14:56:00 157.5 cm [facility] Body weight 2022-06-30 14:56:00 64.864 kg [facility] BMI 2022-06-30 14:56:00 26.16 kg/m2 [facility] Oxygen saturation in Arterial blood by Pulse oximetry 2022-06-30 14:56:00 100 /min [facility] Systolic blood pressure 2022-03-12 15:28:00 112 mm[Hg] [facility] Diastolic blood pressure 2022-03-12 15:28:00 73 mm[Hg] [facility] Heart rate 2022-03-12 15:28:00 94 /min [facility] Body temperature 2022-03-12 15:28:00 37 Christel [facility] Body height 2022-03-12 15:28:00 157.5 cm [facility] Body weight 2022-03-12 15:28:00 65.318 kg [facility] BMI 2022-03-12 15:28:00 26.34 kg/m2 [facility] Oxygen saturation in Arterial blood by Pulse oximetry 2022-03-12 15:28:00 99 /min [facility] Procedures Procedure Date / Time Performed Performing Clinician Source CONSENT FOR CONTRACEPTION 2022-07-06 06:01:00 Doctor Unassigned, [place] [facility] Encounters Start Date/Time End Date/Time Encounter Type Admission Type Attending Clinicians Care Facility Care Department Encounter ID Source 2023-06-21 00:00:00 2023-06-21 00:00:00 Patient Secure Karena Lee [facility] 1.2.840.114 350.1.13.10 4.2.7.2.686 [id number] [facility] 2022-12-10 16:30:00 2022-12-10 17:06:55 Outpatient R EVELIA JESUS [facility] [id number] [facility] 2022-12-10 16:30:00 2022-12-10 17:06:55 Office Visit Evelia Jesus [facility] 1.2.840.114 350.1.13.10 4.2.7.2.686 [id number] [facility] 2022-12-09 19:00:00 2022-12-09 19:20:00 Urgent Care Tamra Cheatham Unknown, Attending [facility] 1.2.840.114 350.1.13.10 4.2.7.2.686 [id number] [facility] 2022-12-09 19:00:00 2022-12-09 19:00:00 Outpatient R TAMRA CHEATHAM [facility] [id number] [facility] 2022-07-06 09:15:00 2022-07-06 09:54:42 Outpatient KARENA WELLER [facility] [id number] [facility] 2022-07-06 09:15:00 2022-07-06 09:54:42 Office Visit Karena Lee [facility] 1.114 350.1.13.10 4.2.7.2.686 [id number] [facility] 2022-07-06 00:00:00 2022-07-06 00:00:00 Orders Only Doctor Unassigned, [place] [facility] 1.114 350.1.13.10 4.2.7.2.686 [id number] [facility] 2022-06-30 09:30:00 2022-06-30 09:45:00 Packer Denture Visit Lab, Evelia Nguyen [facility] 1.84.114 350.1.13.10 4.2.7.2.686 [id number] [facility] 2022-06-30 09:00:00 2022-06-30 09:30:03 Outpatient R EVELIA JESUS [facility] [id number] [facility] 2022-06-30 09:00:00 2022-06-30 09:30:03 Office Visit Evelia Jesus [facility] 1.84.114 350.1.13.10 4.2.7.2.686 [id number] [facility] 2022-03-12 10:20:00 2022-03-12 10:56:43 [facility] 1.84.114 350.1.13.10 4.2.7.2.686 [id number] [facility] 2022-03-12 10:20:00 2022-03-12 10:56:43 Outpatient R JAI [facility] [id number] [facility] 2022-03-12 10:20:00 2022-03-12 10:20:00 Outpatient Melissa CHRISTIE JONES [facility] [id number] [facility] 2022-02-09 15:30:00 2022-02-09 15:30:00 Outpatient R JHONNY DOSS [facility] [id number] [facility] 2022-02-05 11:00:00 2022-02-05 11:31:04 Outpatient R JAI [facility] [id number] [facility] 2022-02-05 11:00:00 2022-02-05 11:31:04 Office Visit In[facility] 1.2.840.114 350.1.13.10 4.2.7.2.686 [id number] [facility] 2022-02-05 11:00:00 2022-02-05 11:31:04 Outpatient Melissa CHRISTIE [facility] [id number] [facility] 2022-02-03 00:00:00 2022-02-03 00:00:00 Telephone Lyla Cotter [facility] REFRIGERATOR [facility]IER [facility] 1..840.114 350.1.13.10 4.2.7.2.686 [id number] [facility] 2022-02-02 00:00:00 2022-02-02 00:00:00 Telephone [facility] 1..840.114 350.1.13.10 4.2.7.2.686 [id number] [facility] 2022-01-30 19:07:00 2022-01-30 21:25:00 Emergency X Maurizio RIZZO [facility] ERT [id number] [facility] 2022-01-30 19:07:00 2022-01-30 21:25:00 Emergency Maurizio Rizzo [facility] 1.840.114 350.1.13.10 4.2.7.2.686 [id number] [facility] 2022-01-30 19:07:00 2022-01-30 21:25:00 Emergency X Maurizio RIZZO [facility] [id number] [facility] 2022-01-29 00:00:00 2022-01-29 00:00:00 Telephone Jhonny Doss [facility] 1.84.114 350.1.13.10 4.2.7.2.686 [id number] [facility] 2022-01-27 00:00:00 2022-01-27 00:00:00 Patient Secure Msg Doctor Unassigned, [place] [facility] 1.114 350.1.13.10 4.2.7.2.686 [id number] [facility] 2022-01-24 09:34:00 2022-01-26 19:35:00 Outpatient X MICHAEL PINEDA [facility] [id number] [facility] 2022-01-24 09:34:00 2022-01-26 19:35:00 Emergency Vanessa Yost Yaman [facility] 1.84.114 350.1.13.10 4.2.7.2.686 [id number] [facility] 2022-01-24 09:34:00 2022-01-26 19:35:00 Outpatient X MICHAEL PINEDA [facility] [id number] [facility] 2022-01-26 09:20:00 2022-01-26 12:34:00 Surgery Jhonny Doss [facility] 1.84.114 350.1.13.10 4.2.7.2.686 [id number] [facility] 2022-01-24 09:15:00 2022-01-24 09:21:42 Nurse Visit Nurse, Neal Alvarez [facility] Moshe Britt CASYLVIA [facility] 1.84.114 350.1.13.10 4.2.7.2.686 [id number] [facility] 2022-01-24 09:15:00 2022-01-24 09:21:42 Outpatient R MOSHE BRITT [facility] [id number] [facility] 2022-01-24 09:15:00 2022-01-24 09:15:00 Outpatient R MOSHE BRITT [facility] [id number] [facility] 2022-01-22 00:00:00 2022-01-22 00:00:00 Refill Gabi Taylor [facility] REFRIGERATOR [facility] .84.114 350.1.13.10 4.2.7.2.686 [id number] [facility] 2022-01-22 00:00:00 2022-01-22 00:00:00 Telephone Gabi Taylor [facility] REFRIGERATOR [facility] .840.114 350.1.13.10 4.2.7.2.686 [id number] [facility] 2021-12-18 15:30:00 2021-12-18 15:38:28 Outpatient R GABI TAYLOR [facility] [id number] [facility] 2021-12-18 15:30:00 2021-12-18 15:38:28 Office Visit Gabi Taylor [facility] REFRIGERATOR [facility] 1.840.114 350.1.13.10 4.2.7.2.686 [id number] [facility] 2021-12-18 15:30:00 2021-12-18 15:38:28 Outpatient R GABI TAYLOR [facility] [id number] [facility] 2021-12-18 00:00:00 2021-12-18 00:00:00 Orders Only Doctor Unassigned, [place] [facility] 1.2.840.114 350.1.13.10 4.2.7.2.686 [id number] [facility] 2021-12-10 15:15:00 2021-12-10 15:15:00 Outpatient Melissa HARJIT BROWER [facility] [id number] [facility] 2021-11-23 00:00:00 2021-11-23 00:00:00 Harjit Aldana [facility] REFRIGERATOR [facility] 1.2.840.114 350.1.13.10 4.2.7.2.686 [id number] [facility] 2021-11-23 00:00:00 2021-11-23 00:00:00 Patient Secure Harjit Brower [facility] REFRIGERATOR [facility] 1.2.840.114 350.1.13.10 4.2.7.2.686 [id number] [facility] 2021-11-09 10:30:00 2021-11-09 10:30:00 Outpatient R GABI TAYLOR [facility] [id number] [facility] 2021-11-09 10:30:00 2021-11-09 10:30:00 Outpatient R GABI TAYLOR [facility] [id number] [facility] 2021-10-19 00:00:00 2021-10-19 00:00:00 Patient Secure Harjit Brower [facility] REFRIGERATOR [facility] 1.2.840.114 350.1.13.10 4.2.7.2.686 [id number] [facility] 2021-10-19 00:00:00 2021-10-19 00:00:00 Patient Secure Glo Winslowguillermina Melissa [facility] REFRIGERATOR [facility] 1.2.840.114 350.1.13.10 4.2.7.2.686 [id number] [facility] 2021-09-14 07:45:00 2021-09-14 08:53:43 Outpatient R HARJIT BROWER [facility] [id number] [facility] 2021-09-14 07:45:00 2021-09-14 08:53:43 Office Visit Tony Harjit Torres [facility] REFRIGERATOR [facility] 1.2.840.114 350.1.13.10 4.2.7.2.686 [id number] [facility] 2021-09-11 00:00:00 2021-09-11 00:00:00 Patient Secure Shayna Marinocristi Estevez [facility] REFRIGERATOR [facility] 1.2.840.114 350.1.13.10 4.2.7.2.686 [id number] [facility] 2021-08-19 00:00:00 2021-08-19 00:00:00 Telephone Gabi Taylor [facility] REFRIGERATOR [facility] 1..840.114 350.1.13.10 4.2.7.2.686 [id number] [facility] 2021-08-18 10:30:00 2021-08-18 11:43:36 Outpatient R GABI TAYLOR [facility] [id number] [facility] 2021-08-18 10:30:00 2021-08-18 11:43:36 Office Visit Gabi Taylor [facility] REFRIGERATOR [facility] 1.840.114 350.1.13.10 4.2.7.2.686 [id number] [facility] 2021-08-07 00:00:00 2021-08-07 00:00:00 Patient Secure Msg Gabi Taylro [facility] REFRIGERATOR [facility] 1.2840.114 350.1.13.10 4.2.7.2.686 [id number] [facility] 2021-07-28 10:45:00 2021-07-28 11:20:36 Outpatient R GABI TAYLOR [facility] [id number] [facility] 2021-07-28 10:45:00 2021-07-28 11:20:36 Routine Visit Gabi Taylor [facility] REFRIGERATOR [facility] 1..840.114 350.1.13.10 4.2.7.2.686 [id number] [facility] 2021-07-28 10:45:00 2021-07-28 11:20:36 Outpatient R GABI TAYLOR [facility] [id number] [facility] 2021-07-13 08:00:00 2021-07-13 08:33:16 Outpatient R MILAGRO WILSON [facility] [id number] [facility] 2021-07-13 08:00:00 2021-07-13 08:33:16 Nurse Visit Visit, Ang-Rmchp Nurse Milagro Wilson [facility] REFRIGERATOR [facility] 1.2.840.114 350.1.13.10 4.2.7.2.686 [id number] [facility] 2021-07-10 10:15:00 2021-07-10 10:30:00 Routine Visit Milagro Wilson [facility] REFRIGERATOR [facility] 1.2.840.114 350.1.13.10 4.2.7.2.686 [id number] [facility] 2021-07-10 10:15:00 2021-07-10 10:15:00 Outpatient R MILAGRO WILSON [facility] [id number] [facility] 2021-07-10 00:00:00 2021-07-10 00:00:00 Telephone Milagro Wilson [facility] REFRIGERATOR [facility] 1.2.840.114 350.1.13.10 4.2.7.2.686 [id number] [facility] 2021-07-10 00:00:00 2021-07-10 00:00:00 Patient Secure Msg Milagro Wilson [facility] REFRIGERATOR [facility] 1.2840.114 350.1.13.10 4.2.7.2.686 [id number] [facility] 2021-07-03 07:35:00 2021-07-06 13:38:00 Inpatient P ISIDRO WHITE [facility] REGINO [id number] [facility] 2021-07-03 07:35:00 2021-07-06 13:38:00 Hospital Encounter Naz Kemp Hassan [facility] 1.2840.114 350.1.13.10 4.2.7.2.686 [id number] [facility] 2021-07-04 05:00:00 2021-07-04 17:07:00 Anesthesia Event Sarah Vinson Shobana [facility] 1.2.840.114 350.1.13.10 4.2.7.2.686 [id number] [facility] 2021-07-04 15:10:00 2021-07-04 16:51:00 Surgery Radha Mcintosh [facility] 1.2.840.114 350.1.13.10 4.2.7.2.686 [id number] [facility] 2021-06-29 00:00:00 2021-06-29 00:00:00 Patient Secure Milagro Wilson [facility] REFRIGERATOR [facility] 1.2.840.114 350.1.13.10 4.2.7.2.686 [id number] [facility] 2021-06-29 00:00:00 2021-06-29 00:00:00 Patient Secure Milagro Wilson [facility] REFRIGERATOR [facility] 1.2.840.114 350.1.13.10 4.2.7.2.686 [id number] [facility] 2021-06-25 09:15:00 2021-06-25 09:54:08 Routine Visit Milagro Wilson [facility] REFRIGERATOR [facility] 1.2.840.114 350.1.13.10 4.2.7.2.686 [id number] [facility] 2021-06-25 09:15:00 2021-06-25 09:54:08 Outpatient MILAGRO ROD [facility] [id number] [facility] 2021-06-25 09:15:00 2021-06-25 09:15:00 Outpatient MILAGRO ROD [facility] [id number] [facility] 2021-06-23 10:15:00 2021-06-23 10:15:00 Outpatient MILAGRO ROD [facility] [id number] [facility] 2021-06-18 10:45:00 2021-06-18 10:45:00 Outpatient MILAGRO ROD [facility] [id number] [facility] 2021-06-16 00:00:00 2021-06-16 00:00:00 Telephone Milagro Wilson [facility] REFRIGERATOR [facility] & CHILD [facility] 1.2.840.114 350.1.13.10 4.2.7.2.686 [id number] [facility] 2021-06-03 09:30:00 2021-06-03 10:02:43 Outpatient R MILAGRO WILSON [facility] [id number] [facility] 2021-06-03 09:25:58 2021-06-03 10:02:43 Routine Visit Milagro Wilson [facility] REFRIGERATOR [facility] 1.2.840.114 350.1.13.10 4.2.7.2.686 [id number] [facility] 2021-05-29 10:15:00 2021-05-29 10:15:00 Outpatient R MILAGRO WILSON [facility] [id number] [facility] 2021-05-18 00:00:00 2021-05-18 00:00:00 Patient Secure Msg Milagro Wilson [facility] REFRIGERATOR [facility] 1.2.840.114 350.1.13.10 4.2.7.2.686 [id number] [facility] 2021-05-14 11:01:44 2021-05-14 11:16:44 Routine Visit Milagro Wilson [facility] REFRIGERATOR [facility] 1.2.840.114 350.1.13.10 4.2.7.2.686 [id number] [facility] 2021-05-14 11:00:00 2021-05-14 11:00:00 Outpatient R MILAGRO WILSON [facility] [id number] [facility] 2021-04-23 00:00:00 2021-04-23 00:00:00 Telephone Milagro Wilson [facility] REFRIGERATOR [facility] 1.2.840.114 350.1.13.10 4.2.7.2.686 [id number] [facility] 2021-04-22 09:55:52 2021-04-22 10:44:54 Routine Visit Milagro Wilson [facility] REFRIGERATOR [facility] 1.2.840.114 350.1.13.10 4.2.7.2.686 [id number] [facility] 2021-04-22 10:00:00 2021-04-22 10:00:00 Outpatient R MILAGRO WILSON [facility] [id number] [facility] 2021-04-07 00:00:00 2021-04-07 00:00:00 Patient Secure Msg Milagro Wilson [facility] REFRIGERATOR [facility] 1.2.840.114 350.1.13.10 4.2.7.2.686 [id number] [facility] 2021-04-01 00:00:00 2021-04-01 00:00:00 Telephone Milagro Wilson [facility] REFRIGERATOR [facility] 1.2.840.114 350.1.13.10 4.2.7.2.686 [id number] [facility] 2021-04-01 00:00:00 2021-04-01 00:00:00 Telephone Milagro Wilson [facility] REFRIGERATOR [facility] 1.2.840.114 350.1.13.10 4.2.7.2.686 [id number] [facility] 2021-03-31 10:05:18 2021-03-31 10:32:35 Routine Visit Milagro Wilson [facility] REFRIGERATOR [facility] 1.2.840.114 350.1.13.10 4.2.7.2.686 [id number] [facility] 2021-03-31 10:15:00 2021-03-31 10:15:00 Outpatient R MILAGRO WILSON [facility] [id number] [facility] 2021-03-13 00:00:00 2021-03-13 00:00:00 Telephone Milagro Wilson [facility] REFRIGERATOR [facility] 1.2.840.114 350.1.13.10 4.2.7.2.686 [id number] [facility] 2021-03-13 00:00:00 2021-03-13 00:00:00 Patient Secure Msg Milagro Wilson [facility] REFRIGERATOR [facility] 1.2.840.114 350.1.13.10 4.2.7.2.686 [id number] [facility] 2021-03-03 10:00:03 2021-03-03 10:30:34 Routine Visit Milagro Wilson [facility] REFRIGERATOR [facility]LA[facility]IER [facility] 1.2.840.114 350.1.13.10 4.2.7.2.686 [id number] [facility] 2021-03-03 10:15:00 2021-03-03 10:15:00 Outpatient R MILAGRO WILSON [facility] [id number] [facility] 2021-02-18 10:49:36 2021-02-18 11:55:33 Packer Denture Visit Ultrasound, Alyx Walsh [facility] REFRIGERATOR [facility] 1.2.840.114 350.1.13.10 4.2.7.2.686 [id number] [facility] 2021-02-18 11:00:00 2021-02-18 11:00:00 Outpatient P [facility] [id number] [facility] 2021-02-03 12:45:45 2021-02-03 13:49:12 Routine Visit Milagro Wilson [facility] REFRIGERATOR [facility]NAL & CHILD [facility] 1.2.840.114 350.1.13.10 4.2.7.2.686 [id number] [facility] 2021-02-03 12:45:45 2021-02-03 13:49:12 Routine Visit Milagro Wilson [facility] REFRIGERATOR [facility] MATERNAL & CHILD [facility] 1.2.840.114 350.1.13.10 4.2.7.2.686 [id number] 2021-02-03 13:00:00 2021-02-03 13:00:00 Outpatient R MILAGRO WILSON [facility] [id number] [facility] 2021-01-31 00:00:00 2021-01-31 00:00:00 Harjit Manzanares [facility] REFRIGERATOR [facility]ERNAL & CHILD [facility] 1.2840.114 350.1.13.10 4.2.7.2.686 [id number] [facility] 2021-01-31 00:00:00 2021-01-31 00:00:00 Milagro Haro [facility] REFRIGERATOR [facility]ERNAL & CHILD [facility] 1.2.840.114 350.1.13.10 4.2.7.2.686 [id number] [facility] 2021-01-31 00:00:00 2021-01-31 00:00:00 Milagro Haro [facility] REFRIGERATOR [facility]ERNAL & CHILD [facility] 1.2.840.114 350.1.13.10 4.2.7.2.686 [id number] 2021-01-31 00:00:00 2021-01-31 00:00:00 Harjit Manzanares [facility] REFRIGERATOR [facility]ERNAL & CHILD [facility] 1.2.840.114 350.1.13.10 4.2.7.2.686 [id number] 2021-01-16 00:00:00 2021-01-16 00:00:00 Telephone Glo Browerguillermina Melissa [facility] REFRIGERATOR [facility]NAL & CHILD [facility] 1.2.840.114 350.1.13.10 4.2.7.2.686 [id number] [facility] 2021-01-16 00:00:00 2021-01-16 00:00:00 Telephone Glo Browerguillermina Melissa [facility] REFRIGERATOR [facility]NAL & [facility]ILD [facility] 1.2.840.114 350.1.13.10 4.2.7.2.686 [id number] 2021-01-06 12:52:07 2021-01-06 13:11:46 Routine Visit Milagro Wilson [facility] REFRIGERATOR [facility] & [facility]ILD [facility] [id number] 350.1.13.10 [id number] [id number] [facility] 2021-01-06 12:52:07 2021-01-06 13:11:46 Routine Visit Milagro Wilson [facility] REFRIGERATOR [facility] MATERNAL & CHILD [facility] [id number] 350.1.13.10 4.2.7.2.686 [id number] 2021-01-06 13:00:00 2021-01-06 13:00:00 Outpatient R MILAGRO WILSON [facility] [id number] [facility] 2021-01-01 13:56:44 2021-01-01 14:41:44 [facility] Mohan [facility] REFRIGERATOR [facility] MATERNAL & CHILD [facility] 1.2.840.114 350.1.13.10 4.2.7.2.686 [id number] [facility] 2021-01-01 13:58:50 2021-01-01 14:39:43 [facility] Visit Lab, [facility] Felisha Garcia [facility] REFRIGERATOR GLA[facility]IER [facility] & CHILD [facility] 1.2.840.114 350.1.13.10 4.2.7.2.686 [id number] [facility] 2021-01-01 13:58:50 2021-01-01 14:39:43 [facility]acker Denture Visit Lab, [facility] REFRIGERATOR GLAZIER [facility] CHILD [facility] 1.2.840.114 350.1.13.10 4.2.7.2.686 [id number] 2021-01-01 14:15:00 2021-01-01 14:15:00 Outpatient P [facility] [id number] [facility] 2020-12-26 00:00:00 2020-12-26 00:00:00 Patient Secure Msg Milagro Wilson [facility] REFRIGERATOR [facility] CH[facility] 1.2840.114 350.1.13.10 4.2.7.2.686 [id number] [facility] 2020-12-26 00:00:00 2020-12-26 00:00:00 Patient Secure Msg Milagro Wilson [facility] 1.2.840.114 350.1.13.10 [id number] [id number] [facility] 2020-12-26 00:00:00 2020-12-26 00:00:00 Orders Only Doctor Unassigned, [place] [facility] 1.2.840.114 350.1.13.10 4.2.7.2.686 [id number] [facility] 2020-12-24 00:00:00 2020-12-24 00:00:00 Telephone Milagro Wilson [facility] REFRIGERATOR [facility]IER [facility] 1.2.840.114 350.1.13.10 4.2.7.2.686 [id number] [facility] 2020-12-11 12:48:03 2020-12-11 13:14:13 Routine Visit Milagro Wilson [facility] REFRIGERATOR [facility] & CHILD [facility] 1.2.114 350.1.13.10 4.2.7.2.686 [id number] [facility] 2020-12-11 12:45:00 2020-12-11 12:45:00 Outpatient R MILAGRO WILSON [facility] [id number] [facility] 2020-11-27 00:00:00 2020-11-27 00:00:00 Telephone Harjit Brower [facility] REFRIGERATOR [facility] & CHILD [facility] 1..114 350.1.13.10 4.2.7.2.686 [id number] [facility] 2020-11-14 00:00:00 2020-11-14 00:00:00 Telephone Milagro Wilson [facility] REFRIGERATOR [facility] 1..114 350.1.13.10 4.2.7.2.686 [id number] [facility] 2020-11-13 13:51:44 2020-11-13 14:54:38 Initial Visit Milagro Wilson [facility] 1.2.114 350.1.13.10 4.2.7.2.686 [id number] [facility] 2020-11-13 13:45:00 2020-11-13 13:45:00 Outpatient R MILAGRO WILSON [facility] [id number] [facility] 2020-11-13 00:00:00 2020-11-13 00:00:00 Orders Only Doctor Unassigned, [place] [facility] 1..114 350.1.13.10 4.2.7.2.686 [id number] [facility]
[2024-04-13] MEDS ORDERED: IBUPROFEN 200 MG TAB PO ONE (19:26)
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
[2024-04-13 21:24] VITALS: TEMP 98.4
[2024-04-13 21:26] VITALS: BP 112/68; O2SAT 100
== END 2024-04-13 20:50 | disposition home or self-care (01) ==
LOC: ER 18:34
DX: S60.512A Abrasion of left hand, initial encounter (principal); S60.222A Contusion of left hand, initial encounter; V49.49XA Driver injured in collision with other motor vehicles in traffic accident, initial encounter
CPT/HCPCS: 71045; 72040; 99284